=== PATIENT | male | born 1965 ===

== ENCOUNTER 2018-08-08 15:14 | Inpatient (IN) ==
[2018-08-08] MEDS ORDERED: ALBUTEROL/IPRATROPIUM 3 ML NEB RESP TX PRN (15:51)
[2018-08-08] MEDS ORDERED: GLUCAGON 1 MG VIAL IM PRN ×2 (15:51→18:06)
[2018-08-08] MEDS ORDERED: ONDANSETRON 4 MG/2 ML VIAL IV PRN (15:51)
[2018-08-08] MEDS ORDERED: DEXTROSE 50% 25 GM/50 ML VIAL IV PRN ×2 (15:51→18:06)
[2018-08-08] MEDS: PANTOPRAZOLE 40 MG TABLET PO SCH (17:00)
[2018-08-08] MEDS: PIPERACILLIN/TAZOBACTAM 3,375 MG in SODIUM CHLORIDE 0.9% 100 ML IV SCH ×2 (17:00→23:58)
[2018-08-08] MEDS: LACTATED RINGERS 1,000 ML IV SCH (17:00)
[2018-08-08 17:03] LABS: Basophils % 0.2 % (0.0-0.8); Eosinophils # 0.2 10*3/uL (0.0-0.87); Eosinophils % 1.4 % (0.00-10.9); Hematocrit 31.3 VOL% (42.0-52.0); Hemoglobin 10.2 GM/DL (14.0-18.0); Immature Granulocytes % 0.9 %; Immature Granulocytes Absolute 0.13 #; Lymphocytes # 1.1 10*3/uL (1.4-4.0); Mean Corpuscular HGB Conc 32.6 GM/DL (32-36); Mean Corpuscular Volume 94.8 FL (87-102); Mean Platelet Volume 9.5 FL (9.6-12.0); Monocytes % 8.5 % (1.7-12.7); Platelet Count 366 T/CUMM (130-400); Red Cell Distribution Width 11.9 % (9.3-17.3); White Blood Count 13.7 T/CUMM (4-12)
[2018-08-08 17:22] LABS: Calcium 8.7 MG/DL (8.5-10.1)
[2018-08-08] MEDS ORDERED: VANCOMYCIN INJ 1,000 MG in SODIUM CHLORIDE 0.9% 250 ML IV ONE (18:04)
[2018-08-08] MEDS ORDERED: NICOTINE 14 MG/24 HR PATCH TRANSDERM PRN (18:13)
[2018-08-08 20:15] LABS: Alanine Aminotransferase 30 U/L (16-61); Alkaline Phosphatase 134 U/L (45-117); Aspartate Amino Transferase 16 U/L (0-37); Bilirubin,Total < 0.39 MG/DL (0.2-1.0); Blood Urea Nitrogen 42 MG/DL (7-18); Calcium 8.2 MG/DL (8.5-10.1); Glucose 180 MG/DL (74-106); Osmolality,Calculated 296.3 MOS/KG (273-304); Thyroid Stimulating Hormone 0.774 uIU/ml (0.358-3.74); Total Protein 6.8 G/DL (6.4-8.3)
[2018-08-08] MEDS: INSULIN REGULAR 100 UNIT/ML SUBCUT SCH (21:26)
[2018-08-08 22:36] LABS: Apearance,Urine CLEAR (Clear); Bilirubin,Urine Negative (Negative); Blood, Urine Negative (Negative); Glucose,Urine (UA) >=500 mg/dL (Negative); Ketones,Urine Negative (Negative); Mucus,Urine Occasional /LPF (Occasional); Nitrite,Urine Negative (Negative); Protein,Urine >=500 MG/DL; RBC,Urine 3 /HPF (0-4); Squamous Epithelial Cell,Urine Occasional /HPF (0-10); Urine Color Yellow (Yellow); Urine Specific Gravity 1.012 (1.001-1.035); Urine Urobilinogen < 2.0 EU/DL (0.2-1.0); WBC,Urine 1 /HPF (0-6)
[2018-08-09 04:21] LABS: Risk Ratio 4.09; VLDL CHOLESTEROL 29.6 MG/DL
[2018-08-09] MEDS: INSULIN REGULAR 100 UNIT/ML SUBCUT SCH ×4 (07:56→20:48)
[2018-08-09] MEDS: MULTIVITAMIN (CENTRUM) TABLET PO SCH (08:12)
[2018-08-09] MEDS: METOPROLOL TARTRATE 50 MG TABLET PO SCH ×2 (08:12→15:00)
[2018-08-09] MEDS: PANTOPRAZOLE 40 MG TABLET PO SCH (08:12)
[2018-08-09] MEDS: SIMVASTATIN 20 MG TABLET PO SCH (08:13)
[2018-08-09] MEDS: PIPERACILLIN/TAZOBACTAM 3,375 MG in SODIUM CHLORIDE 0.9% 100 ML IV SCH ×3 (08:55→23:32)
[2018-08-09] MEDS ORDERED: LIDOCAINE 1% 20 ML VIAL ONE (09:26)
[2018-08-09] MEDS ORDERED: PROPOFOL 200 MG/20 ML VIAL IV ONE (11:19)
[2018-08-09] MEDS ORDERED: LABETALOL 20 MG/4 ML SYRINGE IV ONE (11:20)
[2018-08-09] MEDS ORDERED: fentaNYL 100 MCG/2 ML VIAL ONE (11:20)
[2018-08-09] MEDS ORDERED: MIDAZOLAM 2 MG/2 ML VIAL ONE (11:20)
[2018-08-09] MEDS: VANCOMYCIN INJ 1,500 MG in SODIUM CHLORIDE 0.9% 500 ML IV SCH (15:45)
[2018-08-09] MEDS: LACTATED RINGERS 1,000 ML IV SCH (17:06)
[2018-08-09] MEDS: hydrALAZINE 20 MG/1 ML VIAL IV PRN (18:20)
[2018-08-10 08:18] LABS: Basophils # 0.1 10*3/uL (0.0-0.2); Basophils % 0.3 % (0.0-0.8); Eosinophils # 0.4 10*3/uL (0.0-0.87); Eosinophils % 2.4 % (0.00-10.9); Hematocrit 32.6 VOL% (42.0-52.0); Hemoglobin 10.6 GM/DL (14.0-18.0); Immature Granulocytes % 1.1 %; Immature Granulocytes Absolute 0.16 #; Mean Corpuscular HGB Conc 32.5 GM/DL (32-36); Mean Corpuscular Volume 93.7 FL (87-102); Mean Platelet Volume 9.2 FL (9.6-12.0); Monocytes % 7.7 % (1.7-12.7); Neutrophils % 81.5 % (38.7-73.9); Platelet Count 353 T/CUMM (130-400); Red Blood Count 3.48 MC/CUMM (3.8-5.5); Red Cell Distribution Width 11.7 % (9.3-17.3); White Blood Count 14.4 T/CUMM (4-12)
[2018-08-10 08:40] LABS: Alanine Aminotransferase 39 U/L (16-61); Albumin 1.9 G/DL (3.4-5.0); Alkaline Phosphatase 118 U/L (45-117); Aspartate Amino Transferase 22 U/L (0-37); Bilirubin,Total < 0.39 MG/DL (0.2-1.0); Blood Urea Nitrogen 39 MG/DL (7-18); Calcium 8.6 MG/DL (8.5-10.1); Glucose 197 MG/DL (74-106); Osmolality,Calculated 296.1 MOS/KG (273-304); Total Protein 6.8 G/DL (6.4-8.3)
[2018-08-10] MEDS: PANTOPRAZOLE 40 MG TABLET PO SCH (08:42)
[2018-08-10] MEDS: MULTIVITAMIN (CENTRUM) TABLET PO SCH (08:42)
[2018-08-10] MEDS: SIMVASTATIN 20 MG TABLET PO SCH (08:42)
[2018-08-10] MEDS: METOPROLOL TARTRATE 50 MG TABLET PO SCH (08:42)
[2018-08-10] MEDS: INSULIN REGULAR 100 UNIT/ML SUBCUT SCH ×4 (08:43→21:36)
[2018-08-10] MEDS: PIPERACILLIN/TAZOBACTAM 3,375 MG in SODIUM CHLORIDE 0.9% 100 ML IV SCH ×3 (08:45→23:50)
[2018-08-10] MEDS: BISACODYL 5 MG TABLET PO PRN (10:15)
[2018-08-10] MEDS: VANCOMYCIN INJ 1,500 MG in SODIUM CHLORIDE 0.9% 500 ML IV SCH (11:09)
[2018-08-10] MEDS: MAGNESIUM HYDROXIDE SUSP 30 ML UDCUP PO PRN (15:34)
[2018-08-10] MEDS: HYDROmorphone 2 MG/1 ML VIAL IV PRN (21:31)
[2018-08-10] MEDS: INSULIN NPH/REGULAR 70/30 100 UNIT/ML SUBCUT SCH (21:38)
[2018-08-11 04:39] LABS: Basophils % 0.2 % (0.0-0.8); Eosinophils # 0.4 10*3/uL (0.0-0.87); Eosinophils % 3.2 % (0.00-10.9); Hematocrit 31.9 VOL% (42.0-52.0); Hemoglobin 10.8 GM/DL (14.0-18.0); Immature Granulocytes % 0.9 %; Immature Granulocytes Absolute 0.12 #; Lymphocytes # 0.9 10*3/uL (1.4-4.0); Lymphocytes % 7.3 % (21.2-54.2); Mean Corpuscular HGB Conc 33.9 GM/DL (32-36); Mean Corpuscular Volume 92.2 FL (87-102); Mean Platelet Volume 9.5 FL (9.6-12.0); Monocytes % 9.3 % (1.7-12.7); Neutrophils % 79.1 % (38.7-73.9); Platelet Count 356 T/CUMM (130-400); Red Blood Count 3.46 MC/CUMM (3.8-5.5); Red Cell Distribution Width 11.7 % (9.3-17.3); White Blood Count 12.7 T/CUMM (4-12)
[2018-08-11] MEDS: LACTATED RINGERS 1,000 ML IV SCH ×2 (04:43→04:44)
[2018-08-11] MEDS: VANCOMYCIN INJ 1,500 MG in SODIUM CHLORIDE 0.9% 500 ML IV SCH (04:54)
[2018-08-11 05:06] LABS: Albumin 1.9 G/DL (3.4-5.0); Bilirubin,Total 0.5 MG/DL (0.2-1.0); Calcium 8.4 MG/DL (8.5-10.1); Osmolality,Calculated 293.1 MOS/KG (273-304); Total Protein 6.7 G/DL (6.4-8.3)
[2018-08-11] MEDS: MULTIVITAMIN (CENTRUM) TABLET PO SCH (09:13)
[2018-08-11] MEDS: ASPIRIN CHEW 81 MG TABLET PO SCH (09:13)
[2018-08-11] MEDS: METOPROLOL TARTRATE 50 MG TABLET PO SCH (09:13)
[2018-08-11] MEDS: SIMVASTATIN 20 MG TABLET PO SCH (09:13)
[2018-08-11] MEDS: PANTOPRAZOLE 40 MG TABLET PO SCH (09:13)
[2018-08-11] MEDS: INSULIN REGULAR 100 UNIT/ML SUBCUT SCH ×4 (09:15→20:51)
[2018-08-11] MEDS: INSULIN NPH/REGULAR 70/30 100 UNIT/ML SUBCUT SCH ×2 (09:17→20:51)
[2018-08-11] MEDS: PIPERACILLIN/TAZOBACTAM 3,375 MG in SODIUM CHLORIDE 0.9% 100 ML IV SCH ×2 (09:18→17:20)
[2018-08-11] MEDS: MAGNESIUM HYDROXIDE SUSP 30 ML UDCUP PO PRN (09:22)
[2018-08-11] MEDS: BISACODYL 5 MG TABLET PO PRN (09:22)
[2018-08-11] MEDS: SODIUM HYPOCHLORITE 0.25% IRRIG 473 ML BOTTLE TOP SCH (10:38)
[2018-08-11] MEDS: CHLORHEXIDINE 4% SOLN 118 ML BOTTLE TOP SCH (10:39)
[2018-08-11] MEDS: TAMSULOSIN 0.4 MG CAPSULE PO SCH (20:50)
[2018-08-12] MEDS: PIPERACILLIN/TAZOBACTAM 3,375 MG in SODIUM CHLORIDE 0.9% 100 ML IV SCH ×3 (00:20→16:38)
[2018-08-12] MEDS: HYDROmorphone 2 MG/1 ML VIAL IV PRN ×2 (01:27→05:58)
[2018-08-12] MEDS: VANCOMYCIN INJ 1,500 MG in SODIUM CHLORIDE 0.9% 500 ML IV SCH (06:01)
[2018-08-12] MEDS ORDERED: LIDOCAINE 1% 20 ML VIAL ONE ×2 (07:27)
[2018-08-12] MEDS ORDERED: PROPOFOL 200 MG/20 ML VIAL IV ONE (08:17)
[2018-08-12] MEDS ORDERED: fentaNYL 100 MCG/2 ML VIAL ONE (08:18)
[2018-08-12] MEDS ORDERED: MIDAZOLAM 2 MG/2 ML VIAL ONE (08:18)
[2018-08-12 08:46] LABS: Basophils % 0.2 % (0.0-0.8); Eosinophils # 0.5 10*3/uL (0.0-0.87); Eosinophils % 4.4 % (0.00-10.9); Hematocrit 27.8 VOL% (42.0-52.0); Hemoglobin 9.2 GM/DL (14.0-18.0); Immature Granulocytes % 1.2 %; Immature Granulocytes Absolute 0.13 #; Lymphocytes # 1.1 10*3/uL (1.4-4.0); Lymphocytes % 10.2 % (21.2-54.2); Mean Corpuscular HGB Conc 33.1 GM/DL (32-36); Mean Platelet Volume 9.2 FL (9.6-12.0); Monocytes % 7.5 % (1.7-12.7); Neutrophils % 76.5 % (38.7-73.9); Platelet Count 329 T/CUMM (130-400); Red Blood Count 2.99 MC/CUMM (3.8-5.5); Red Cell Distribution Width 11.7 % (9.3-17.3); White Blood Count 10.8 T/CUMM (4-12)
[2018-08-12] MEDS ORDERED: GLUCAGON 1 MG VIAL IM PRN (09:10)
[2018-08-12] MEDS ORDERED: DEXTROSE 50% 25 GM/50 ML VIAL IV PRN (09:10)
[2018-08-12] MEDS: INSULIN REGULAR 100 UNIT/ML SUBCUT SCH ×4 (09:19→21:59)
[2018-08-12] MEDS: MULTIVITAMIN (CENTRUM) TABLET PO SCH (09:21)
[2018-08-12] MEDS: ASPIRIN CHEW 81 MG TABLET PO SCH (09:21)
[2018-08-12] MEDS: PANTOPRAZOLE 40 MG TABLET PO SCH (09:21)
[2018-08-12] MEDS: TAMSULOSIN 0.4 MG CAPSULE PO SCH (09:22)
[2018-08-12] MEDS: BISACODYL 5 MG TABLET PO PRN (09:22)
[2018-08-12] MEDS: METOPROLOL TARTRATE 50 MG TABLET PO SCH (09:22)
[2018-08-12] MEDS: SIMVASTATIN 20 MG TABLET PO SCH (09:22)
[2018-08-12 09:26] LABS: Alanine Aminotransferase 27 U/L (16-61); Albumin 1.7 G/DL (3.4-5.0); Alkaline Phosphatase 94 U/L (45-117); Aspartate Amino Transferase 22 U/L (0-37); Bilirubin,Total < 0.39 MG/DL (0.2-1.0); Blood Urea Nitrogen 26 MG/DL (7-18); Calcium 8.2 MG/DL (8.5-10.1); Glucose 139 MG/DL (74-106); Osmolality,Calculated 292.8 MOS/KG (273-304)
[2018-08-12] MEDS: INSULIN NPH/REGULAR 70/30 100 UNIT/ML SUBCUT SCH ×2 (09:29→20:50)
[2018-08-12] MEDS: SODIUM HYPOCHLORITE 0.25% IRRIG 473 ML BOTTLE TOP SCH (09:32)
[2018-08-12] MEDS: CHLORHEXIDINE 4% SOLN 118 ML BOTTLE TOP SCH (10:41)
[2018-08-12] MEDS: POTASSIUM CHLORIDE 20 MEQ TABLET PO SCH (12:20)
[2018-08-12] MEDS: LACTULOSE 20 GM/30 ML UDCUP PO PRN ×3 (12:20→20:50)
[2018-08-12] MEDS: hydrALAZINE 20 MG/1 ML VIAL IV PRN (20:51)
[2018-08-12] MEDS: LACTATED RINGERS 1,000 ML IV SCH (21:59)
[2018-08-13] MEDS: LACTATED RINGERS 1,000 ML IV SCH ×2 (00:17→17:38)
[2018-08-13] MEDS: PIPERACILLIN/TAZOBACTAM 3,375 MG in SODIUM CHLORIDE 0.9% 100 ML IV SCH ×2 (00:27→10:15)
[2018-08-13 04:47] LABS: Basophils % 0.2 % (0.0-0.8); Eosinophils # 0.6 10*3/uL (0.0-0.87); Eosinophils % 4.5 % (0.00-10.9); Hematocrit 31.4 VOL% (42.0-52.0); Hemoglobin 10.3 GM/DL (14.0-18.0); Immature Granulocytes % 1.3 %; Immature Granulocytes Absolute 0.16 #; Lymphocytes # 1.1 10*3/uL (1.4-4.0); Lymphocytes % 9.3 % (21.2-54.2); Mean Corpuscular HGB Conc 32.8 GM/DL (32-36); Mean Corpuscular Volume 93.2 FL (87-102); Mean Platelet Volume 9.3 FL (9.6-12.0); Monocytes % 8.5 % (1.7-12.7); Neutrophils % 76.2 % (38.7-73.9); Platelet Count 344 T/CUMM (130-400); Red Blood Count 3.37 MC/CUMM (3.8-5.5); Red Cell Distribution Width 11.7 % (9.3-17.3); White Blood Count 12.3 T/CUMM (4-12)
[2018-08-13 05:09] LABS: Alanine Aminotransferase 33 U/L (16-61); Albumin 1.9 G/DL (3.4-5.0); Alkaline Phosphatase 115 U/L (45-117); Aspartate Amino Transferase 31 U/L (0-37); Bilirubin,Total < 0.39 MG/DL (0.2-1.0); Blood Urea Nitrogen 24 MG/DL (7-18); Calcium 7.6 MG/DL (8.5-10.1); Glucose 61 MG/DL (74-106); Osmolality,Calculated 291.6 MOS/KG (273-304); Total Protein 6.4 G/DL (6.4-8.3)
[2018-08-13] MEDS: VANCOMYCIN INJ 1,500 MG in SODIUM CHLORIDE 0.9% 500 ML IV SCH (06:12)
[2018-08-13] MEDS: INSULIN REGULAR 100 UNIT/ML SUBCUT SCH ×4 (09:29→20:36)
[2018-08-13] MEDS: INSULIN NPH/REGULAR 70/30 100 UNIT/ML SUBCUT SCH ×2 (10:10→20:37)
[2018-08-13] MEDS: TAMSULOSIN 0.4 MG CAPSULE PO SCH (10:11)
[2018-08-13] MEDS: PANTOPRAZOLE 40 MG TABLET PO SCH (10:11)
[2018-08-13] MEDS: MULTIVITAMIN (CENTRUM) TABLET PO SCH (10:11)
[2018-08-13] MEDS: POTASSIUM CHLORIDE 20 MEQ TABLET PO SCH (10:11)
[2018-08-13] MEDS: ERGOCALCIFEROL 50,000 UNIT CAPSULE PO SCH (10:11)
[2018-08-13] MEDS: SIMVASTATIN 20 MG TABLET PO SCH (10:11)
[2018-08-13] MEDS: METOPROLOL TARTRATE 50 MG TABLET PO SCH (10:11)
[2018-08-13] MEDS: ASPIRIN CHEW 81 MG TABLET PO SCH (10:11)
[2018-08-13] MEDS: CHLORHEXIDINE 4% SOLN 118 ML BOTTLE TOP SCH (10:15)
[2018-08-13] MEDS: SODIUM HYPOCHLORITE 0.25% IRRIG 473 ML BOTTLE TOP SCH (10:15)
[2018-08-13] MEDS: MAGNESIUM HYDROXIDE SUSP 30 ML UDCUP PO PRN (13:14)
[2018-08-13] MEDS: LEVOFLOXACIN 500 MG TABLET PO SCH (15:47)
[2018-08-13] MEDS: SODIUM CHLORIDE 0.45% 1,000 ML IV SCH (15:48)
[2018-08-13] MEDS ORDERED: BISACODYL 10 MG SUPP RECTAL ONE (15:50)
[2018-08-14] MEDS: HYDROmorphone 2 MG/1 ML VIAL IV PRN (02:04)
[2018-08-14] MEDS: SODIUM CHLORIDE 0.45% 1,000 ML IV SCH ×2 (05:45→16:17)
[2018-08-14] MEDS ORDERED: ceFAZolin 1,000 MG in SYRINGE 1 EACH IV ONE (07:00)
[2018-08-14] MEDS: INSULIN REGULAR 100 UNIT/ML SUBCUT SCH ×4 (07:26→21:50)
[2018-08-14] MEDS ORDERED: HEPARIN/NACL 0.9% 2 UNITS/ML 2,000 ML IV ONE (07:50)
[2018-08-14] MEDS ORDERED: fentaNYL 100 MCG/2 ML VIAL IV ONE (08:00)
[2018-08-14] MEDS ORDERED: MIDAZOLAM 2 MG/2 ML VIAL IV ONE (08:00)
[2018-08-14] MEDS ORDERED: MIDAZOLAM 2 MG/2 ML VIAL ONE (09:15)
[2018-08-14] MEDS ORDERED: fentaNYL 100 MCG/2 ML VIAL ONE (09:15)
[2018-08-14] MEDS: SODIUM HYPOCHLORITE 0.25% IRRIG 473 ML BOTTLE TOP SCH (10:42)
[2018-08-14] MEDS: ASPIRIN CHEW 81 MG TABLET PO SCH (10:42)
[2018-08-14] MEDS: MULTIVITAMIN (CENTRUM) TABLET PO SCH (10:42)
[2018-08-14] MEDS: POTASSIUM CHLORIDE 20 MEQ TABLET PO SCH (10:43)
[2018-08-14] MEDS: CHLORHEXIDINE 4% SOLN 118 ML BOTTLE TOP SCH (10:43)
[2018-08-14] MEDS: SIMVASTATIN 20 MG TABLET PO SCH (10:43)
[2018-08-14] MEDS: TAMSULOSIN 0.4 MG CAPSULE PO SCH (10:43)
[2018-08-14] MEDS: PANTOPRAZOLE 40 MG TABLET PO SCH (10:43)
[2018-08-14] MEDS: METOPROLOL TARTRATE 50 MG TABLET PO SCH (10:43)
[2018-08-14] MEDS: INSULIN NPH/REGULAR 70/30 100 UNIT/ML SUBCUT SCH ×2 (10:43→21:52)
[2018-08-14] MEDS: LEVOFLOXACIN 500 MG TABLET PO SCH (16:14)
[2018-08-15 04:48] LABS: Osmolality,Calculated 287.7 MOS/KG (273-304)
[2018-08-15 04:58] LABS: Basophils # 0.1 10*3/uL (0.0-0.2); Basophils % 0.4 % (0.0-0.8); Eosinophils # 0.5 10*3/uL (0.0-0.87); Hematocrit 30.5 VOL% (42.0-52.0); Hemoglobin 10.2 GM/DL (14.0-18.0); Immature Granulocytes % 1.5 %; Immature Granulocytes Absolute 0.18 #; Lymphocytes # 1.2 10*3/uL (1.4-4.0); Lymphocytes % 10.4 % (21.2-54.2); Mean Corpuscular HGB Conc 33.4 GM/DL (32-36); Mean Corpuscular Volume 91.9 FL (87-102); Mean Platelet Volume 9.7 FL (9.6-12.0); Neutrophils % 75.7 % (38.7-73.9); Platelet Count 329 T/CUMM (130-400); Red Blood Count 3.32 MC/CUMM (3.8-5.5); Red Cell Distribution Width 11.9 % (9.3-17.3); White Blood Count 11.8 T/CUMM (4-12)
[2018-08-15] MEDS: SODIUM CHLORIDE 0.45% 1,000 ML IV SCH (05:54)
[2018-08-15] MEDS: INSULIN REGULAR 100 UNIT/ML SUBCUT SCH ×4 (07:30→21:47)
[2018-08-15] MEDS: CHLORHEXIDINE 4% SOLN 118 ML BOTTLE TOP SCH (09:30)
[2018-08-15] MEDS: SODIUM HYPOCHLORITE 0.25% IRRIG 473 ML BOTTLE TOP SCH (09:30)
[2018-08-15] MEDS: MULTIVITAMIN (CENTRUM) TABLET PO SCH (09:39)
[2018-08-15] MEDS: PANTOPRAZOLE 40 MG TABLET PO SCH (09:39)
[2018-08-15] MEDS: POTASSIUM CHLORIDE 20 MEQ TABLET PO SCH (09:39)
[2018-08-15] MEDS: SIMVASTATIN 20 MG TABLET PO SCH (09:39)
[2018-08-15] MEDS: TAMSULOSIN 0.4 MG CAPSULE PO SCH (09:39)
[2018-08-15] MEDS: METOPROLOL TARTRATE 50 MG TABLET PO SCH (09:39)
[2018-08-15] MEDS: ASPIRIN CHEW 81 MG TABLET PO SCH (09:39)
[2018-08-15] MEDS: INSULIN NPH/REGULAR 70/30 100 UNIT/ML SUBCUT SCH ×2 (09:41→21:47)
[2018-08-15] MEDS: HYDROmorphone 2 MG/1 ML VIAL IV PRN (09:50)
[2018-08-15] MEDS: LEVOFLOXACIN 500 MG TABLET PO SCH (15:24)
[2018-08-16] MEDS: INSULIN REGULAR 100 UNIT/ML SUBCUT SCH ×4 (09:47→20:27)
[2018-08-16] MEDS: INSULIN NPH/REGULAR 70/30 100 UNIT/ML SUBCUT SCH ×2 (09:47→20:25)
[2018-08-16] MEDS: PANTOPRAZOLE 40 MG TABLET PO SCH (11:10)
[2018-08-16] MEDS: METOPROLOL TARTRATE 50 MG TABLET PO SCH (11:11)
[2018-08-16] MEDS: MULTIVITAMIN (CENTRUM) TABLET PO SCH (11:11)
[2018-08-16] MEDS: TAMSULOSIN 0.4 MG CAPSULE PO SCH (11:11)
[2018-08-16] MEDS: SIMVASTATIN 20 MG TABLET PO SCH (11:11)
[2018-08-16] MEDS: ASPIRIN CHEW 81 MG TABLET PO SCH (11:12)
[2018-08-16] MEDS: POTASSIUM CHLORIDE 20 MEQ TABLET PO SCH (11:12)
[2018-08-16] MEDS: SODIUM HYPOCHLORITE 0.25% IRRIG 473 ML BOTTLE TOP SCH (16:38)
[2018-08-16] MEDS: CHLORHEXIDINE 4% SOLN 118 ML BOTTLE TOP SCH (16:38)
[2018-08-16] MEDS: LEVOFLOXACIN 500 MG TABLET PO SCH (16:42)
[2018-08-16] MEDS: LACTULOSE 20 GM/30 ML UDCUP PO PRN (16:43)
[2018-08-16] MEDS: GLYCERIN ADULT SUPP RECTAL PRN (18:30)
[2018-08-17] MEDS: INSULIN REGULAR 100 UNIT/ML SUBCUT SCH ×4 (07:48→22:27)
[2018-08-17] MEDS: INSULIN NPH/REGULAR 70/30 100 UNIT/ML SUBCUT SCH ×2 (08:58→22:22)
[2018-08-17] MEDS: diphenhydrAMINE CAP 25 MG CAPSULE PO PRN ×3 (08:59→22:59)
[2018-08-17] MEDS: PANTOPRAZOLE 40 MG TABLET PO SCH (08:59)
[2018-08-17] MEDS: POTASSIUM CHLORIDE 20 MEQ TABLET PO SCH (08:59)
[2018-08-17] MEDS: MULTIVITAMIN (CENTRUM) TABLET PO SCH (08:59)
[2018-08-17] MEDS: ASPIRIN CHEW 81 MG TABLET PO SCH (08:59)
[2018-08-17] MEDS: METOPROLOL TARTRATE 50 MG TABLET PO SCH (08:59)
[2018-08-17] MEDS: TAMSULOSIN 0.4 MG CAPSULE PO SCH (08:59)
[2018-08-17] MEDS: SIMVASTATIN 20 MG TABLET PO SCH (08:59)
[2018-08-17] MEDS: CHLORHEXIDINE 4% SOLN 118 ML BOTTLE TOP SCH (09:01)
[2018-08-17] MEDS: SODIUM HYPOCHLORITE 0.25% IRRIG 473 ML BOTTLE TOP SCH (09:01)
[2018-08-17] MEDS: HYDROmorphone 2 MG/1 ML VIAL IV PRN (10:37)
[2018-08-17] MEDS: LEVOFLOXACIN 500 MG TABLET PO SCH (13:29)
[2018-08-18] MEDS: INSULIN REGULAR 100 UNIT/ML SUBCUT SCH ×4 (08:39→21:23)
[2018-08-18] MEDS: SIMVASTATIN 20 MG TABLET PO SCH (09:50)
[2018-08-18] MEDS: PANTOPRAZOLE 40 MG TABLET PO SCH (09:50)
[2018-08-18] MEDS: POTASSIUM CHLORIDE 20 MEQ TABLET PO SCH (09:50)
[2018-08-18] MEDS: MULTIVITAMIN (CENTRUM) TABLET PO SCH (09:50)
[2018-08-18] MEDS: TAMSULOSIN 0.4 MG CAPSULE PO SCH (09:50)
[2018-08-18] MEDS: ASPIRIN CHEW 81 MG TABLET PO SCH (09:50)
[2018-08-18] MEDS: METOPROLOL TARTRATE 50 MG TABLET PO SCH (09:50)
[2018-08-18] MEDS: GLYCERIN ADULT SUPP RECTAL PRN (09:50)
[2018-08-18] MEDS: INSULIN NPH/REGULAR 70/30 100 UNIT/ML SUBCUT SCH ×2 (09:51→21:23)
[2018-08-18] MEDS: SODIUM HYPOCHLORITE 0.25% IRRIG 473 ML BOTTLE TOP SCH (09:51)
[2018-08-18] MEDS: CHLORHEXIDINE 4% SOLN 118 ML BOTTLE TOP SCH (09:51)
[2018-08-18] MEDS: LACTULOSE 20 GM/30 ML UDCUP PO PRN (11:53)
[2018-08-18] MEDS: LEVOFLOXACIN 500 MG TABLET PO SCH (13:40)
[2018-08-18] MEDS: MELATONIN 3 MG TABLET PO SCH (21:23)
[2018-08-18] MEDS: diphenhydrAMINE CAP 25 MG CAPSULE PO PRN (21:34)
[2018-08-19 05:41] LABS: Basophils % 0.3 % (0.0-0.8); Eosinophils # 0.6 10*3/uL (0.0-0.87); Eosinophils % 5.8 % (0.00-10.9); Hematocrit 29.7 VOL% (42.0-52.0); Hemoglobin 9.7 GM/DL (14.0-18.0); Immature Granulocytes % 1.3 %; Immature Granulocytes Absolute 0.14 #; Lymphocytes # 1.2 10*3/uL (1.4-4.0); Lymphocytes % 11.8 % (21.2-54.2); Mean Corpuscular HGB Conc 32.7 GM/DL (32-36); Mean Platelet Volume 9.7 FL (9.6-12.0); Monocytes % 8.9 % (1.7-12.7); Neutrophils % 71.9 % (38.7-73.9); Platelet Count 315 T/CUMM (130-400); Red Blood Count 3.16 MC/CUMM (3.8-5.5); Red Cell Distribution Width 12.3 % (9.3-17.3); White Blood Count 10.4 T/CUMM (4-12)
[2018-08-19 06:04] LABS: Osmolality,Calculated 291.8 MOS/KG (273-304)
[2018-08-19] MEDS: diphenhydrAMINE CAP 25 MG CAPSULE PO PRN ×2 (07:37→22:01)
[2018-08-19] MEDS: INSULIN REGULAR 100 UNIT/ML SUBCUT SCH ×4 (08:24→22:02)
[2018-08-19] MEDS: METOPROLOL SUCCINATE XL 100 MG TABLET PO SCH (09:02)
[2018-08-19] MEDS: INSULIN NPH/REGULAR 70/30 100 UNIT/ML SUBCUT SCH ×2 (09:03→22:02)
[2018-08-19] MEDS: PANTOPRAZOLE 40 MG TABLET PO SCH (09:03)
[2018-08-19] MEDS: ASPIRIN CHEW 81 MG TABLET PO SCH (09:03)
[2018-08-19] MEDS: POTASSIUM CHLORIDE 20 MEQ TABLET PO SCH (09:03)
[2018-08-19] MEDS: SIMVASTATIN 20 MG TABLET PO SCH (09:03)
[2018-08-19] MEDS: TAMSULOSIN 0.4 MG CAPSULE PO SCH (09:03)
[2018-08-19] MEDS: MULTIVITAMIN (CENTRUM) TABLET PO SCH (09:03)
[2018-08-19] MEDS: SODIUM HYPOCHLORITE 0.25% IRRIG 473 ML BOTTLE TOP SCH (09:03)
[2018-08-19] MEDS: CHLORHEXIDINE 4% SOLN 118 ML BOTTLE TOP SCH (09:04)
[2018-08-19] MEDS: LEVOFLOXACIN 500 MG TABLET PO SCH (13:17)
[2018-08-19] MEDS: MELATONIN 3 MG TABLET PO SCH (22:01)
[2018-08-20] MEDS ORDERED: DEXTROSE 10% 250 ML IV ONE ×2 (04:50→06:52)
[2018-08-20] MEDS: DEXTROSE 10% 25 GM/250 ML BAG IV PRN ×2 (04:56→06:54)
[2018-08-20] MEDS ORDERED: DEXTROSE 10% 250 ML BAG IV PRN (05:08)
[2018-08-20 07:33] LABS: Basophils % 0.3 % (0.0-0.8); Eosinophils # 0.6 10*3/uL (0.0-0.87); Eosinophils % 5.6 % (0.00-10.9); Hematocrit 28.3 VOL% (42.0-52.0); Hemoglobin 9.4 GM/DL (14.0-18.0); Lymphocytes # 1.2 10*3/uL (1.4-4.0); Lymphocytes % 11.6 % (21.2-54.2); Mean Corpuscular HGB Conc 33.2 GM/DL (32-36); Mean Corpuscular Volume 93.1 FL (87-102); Mean Platelet Volume 9.7 FL (9.6-12.0); Monocytes % 8.1 % (1.7-12.7); Neutrophils % 73.4 % (38.7-73.9); Platelet Count 288 T/CUMM (130-400); Red Blood Count 3.04 MC/CUMM (3.8-5.5); Red Cell Distribution Width 12.3 % (9.3-17.3); White Blood Count 10.4 T/CUMM (4-12)
[2018-08-20 08:10] LABS: Albumin 1.8 G/DL (3.4-5.0); Bilirubin,Total 0.5 MG/DL (0.2-1.0); Calcium 7.7 MG/DL (8.5-10.1); Osmolality,Calculated 301.8 MOS/KG (273-304); Total Protein 5.7 G/DL (6.4-8.3)
[2018-08-20] MEDS: INSULIN REGULAR 100 UNIT/ML SUBCUT SCH ×4 (08:18→21:03)
[2018-08-20] MEDS: MULTIVITAMIN (CENTRUM) TABLET PO SCH (10:55)
[2018-08-20] MEDS: ASPIRIN CHEW 81 MG TABLET PO SCH (10:55)
[2018-08-20] MEDS: POTASSIUM CHLORIDE 20 MEQ TABLET PO SCH (10:56)
[2018-08-20] MEDS: SIMVASTATIN 20 MG TABLET PO SCH (10:56)
[2018-08-20] MEDS: INSULIN NPH/REGULAR 70/30 100 UNIT/ML SUBCUT SCH ×2 (10:56→21:36)
[2018-08-20] MEDS: TAMSULOSIN 0.4 MG CAPSULE PO SCH (10:56)
[2018-08-20] MEDS: PANTOPRAZOLE 40 MG TABLET PO SCH (12:12)
[2018-08-20] MEDS: METOPROLOL SUCCINATE XL 100 MG TABLET PO SCH (12:12)
[2018-08-20] MEDS: HYDROmorphone 2 MG/1 ML VIAL IV PRN (12:14)
[2018-08-20] MEDS: SODIUM HYPOCHLORITE 0.25% IRRIG 473 ML BOTTLE TOP SCH (12:33)
[2018-08-20] MEDS: CHLORHEXIDINE 4% SOLN 118 ML BOTTLE TOP SCH (12:33)
[2018-08-20] MEDS ORDERED: SODIUM CHLORIDE 0.9% 250 ML IV SCH (13:30)
[2018-08-20] MEDS ORDERED: MIDAZOLAM 2 MG/2 ML VIAL ONE (14:55)
[2018-08-20] MEDS ORDERED: PROPOFOL 200 MG/20 ML VIAL IV ONE (14:55)
[2018-08-20] MEDS ORDERED: SEVOFLURANE 1 UNIT/15 MINUTE INH ONE (14:55)
[2018-08-20] MEDS ORDERED: fentaNYL 100 MCG/2 ML VIAL ONE (14:55)
[2018-08-20] MEDS ORDERED: ONDANSETRON 4 MG/2 ML VIAL ONE (14:56)
[2018-08-20] MEDS ORDERED: ePHEDrine 50 MG/ML AMP ONE (14:56)
[2018-08-20] MEDS ORDERED: SODIUM CHLORIDE 0.9% 250 ML IV ONE (14:56)
[2018-08-20] MEDS ORDERED: DEXAMETHASONE 4 MG/1 ML VIAL ONE (14:56)
[2018-08-20] MEDS: LEVOFLOXACIN 500 MG TABLET PO SCH (19:26)
[2018-08-20] MEDS: ERGOCALCIFEROL 50,000 UNIT CAPSULE PO SCH (19:26)
[2018-08-20] MEDS: hydrALAZINE 20 MG/1 ML VIAL IV PRN (19:28)
[2018-08-20] MEDS: MELATONIN 3 MG TABLET PO SCH (21:04)
[2018-08-21 08:13] LABS: Basophils % 0.2 % (0.0-0.8); Eosinophils % 0.2 % (0.00-10.9); Hematocrit 35.1 VOL% (42.0-52.0); Immature Granulocytes Absolute 0.13 #; Lymphocytes % 7.9 % (21.2-54.2); Mean Corpuscular Volume 92.6 FL (87-102); Mean Platelet Volume 10.2 FL (9.6-12.0); Monocytes % 6.9 % (1.7-12.7); Neutrophils % 83.8 % (38.7-73.9); Platelet Count 341 T/CUMM (130-400); Red Blood Count 3.79 MC/CUMM (3.8-5.5); Red Cell Distribution Width 12.3 % (9.3-17.3); White Blood Count 12.9 T/CUMM (4-12)
[2018-08-21 08:22] LABS: Hemoglobin 11.6 GM/DL (14.0-18.0)
[2018-08-21 08:33] LABS: Alanine Aminotransferase 22 U/L (16-61); Albumin 2.2 G/DL (3.4-5.0); Alkaline Phosphatase 102 U/L (45-117); Aspartate Amino Transferase 18 U/L (0-37); Bilirubin,Total < 0.39 MG/DL (0.2-1.0); Blood Urea Nitrogen 31 MG/DL (7-18); Calcium 8.2 MG/DL (8.5-10.1); Glucose 233 MG/DL (74-106); Osmolality,Calculated 290.5 MOS/KG (273-304); Total Protein 6.8 G/DL (6.4-8.3)
[2018-08-21] MEDS: POTASSIUM CHLORIDE 20 MEQ TABLET PO SCH (09:00)
[2018-08-21] MEDS: SIMVASTATIN 20 MG TABLET PO SCH (09:00)
[2018-08-21] MEDS: PANTOPRAZOLE 40 MG TABLET PO SCH (09:00)
[2018-08-21] MEDS: METOPROLOL SUCCINATE XL 100 MG TABLET PO SCH (09:00)
[2018-08-21] MEDS: ASPIRIN CHEW 81 MG TABLET PO SCH (09:00)
[2018-08-21] MEDS: MULTIVITAMIN (CENTRUM) TABLET PO SCH (09:00)
[2018-08-21] MEDS: INSULIN REGULAR 100 UNIT/ML SUBCUT SCH ×4 (09:01→21:34)
[2018-08-21] MEDS: INSULIN NPH/REGULAR 70/30 100 UNIT/ML SUBCUT SCH ×2 (09:01→21:34)
[2018-08-21] MEDS: SODIUM HYPOCHLORITE 0.25% IRRIG 473 ML BOTTLE TOP SCH (09:02)
[2018-08-21] MEDS: CHLORHEXIDINE 4% SOLN 118 ML BOTTLE TOP SCH (09:02)
[2018-08-21] MEDS: TAMSULOSIN 0.4 MG CAPSULE PO SCH (09:02)
[2018-08-21] MEDS: diphenhydrAMINE CAP 25 MG CAPSULE PO PRN ×2 (09:10→15:47)
[2018-08-21] MEDS: LEVOFLOXACIN 500 MG TABLET PO SCH (13:55)
[2018-08-22] MEDS: diphenhydrAMINE CAP 25 MG CAPSULE PO PRN ×2 (01:50→20:42)
[2018-08-22] MEDS: INSULIN NPH/REGULAR 70/30 100 UNIT/ML SUBCUT SCH ×2 (08:30→20:39)
[2018-08-22] MEDS: INSULIN REGULAR 100 UNIT/ML SUBCUT SCH ×4 (08:30→20:38)
[2018-08-22 08:31] LABS: Basophils % 0.3 % (0.0-0.8); Eosinophils # 0.6 10*3/uL (0.0-0.87); Eosinophils % 5.6 % (0.00-10.9); Hematocrit 32.2 VOL% (42.0-52.0); Hemoglobin 10.9 GM/DL (14.0-18.0); Immature Granulocytes Absolute 0.11 #; Lymphocytes # 1.8 10*3/uL (1.4-4.0); Lymphocytes % 15.7 % (21.2-54.2); Mean Corpuscular HGB Conc 33.9 GM/DL (32-36); Mean Corpuscular Volume 92.5 FL (87-102); Mean Platelet Volume 9.7 FL (9.6-12.0); Monocytes % 7.7 % (1.7-12.7); Neutrophils % 69.7 % (38.7-73.9); Platelet Count 324 T/CUMM (130-400); Red Blood Count 3.48 MC/CUMM (3.8-5.5); Red Cell Distribution Width 12.6 % (9.3-17.3); White Blood Count 11.5 T/CUMM (4-12)
[2018-08-22] MEDS: POTASSIUM CHLORIDE 20 MEQ TABLET PO SCH (08:31)
[2018-08-22] MEDS: METOPROLOL SUCCINATE XL 100 MG TABLET PO SCH (08:31)
[2018-08-22] MEDS: SODIUM HYPOCHLORITE 0.25% IRRIG 473 ML BOTTLE TOP SCH (08:31)
[2018-08-22] MEDS: TAMSULOSIN 0.4 MG CAPSULE PO SCH (08:31)
[2018-08-22] MEDS: SIMVASTATIN 20 MG TABLET PO SCH (08:31)
[2018-08-22] MEDS: MULTIVITAMIN (CENTRUM) TABLET PO SCH (08:31)
[2018-08-22] MEDS: CHLORHEXIDINE 4% SOLN 118 ML BOTTLE TOP SCH (08:31)
[2018-08-22] MEDS: PANTOPRAZOLE 40 MG TABLET PO SCH (08:31)
[2018-08-22] MEDS: ASPIRIN CHEW 81 MG TABLET PO SCH (08:31)
[2018-08-22] MEDS: MAGNESIUM HYDROXIDE SUSP 30 ML UDCUP PO PRN (08:46)
[2018-08-22 08:58] LABS: Alanine Aminotransferase 19 U/L (16-61); Albumin 2.3 G/DL (3.4-5.0); Alkaline Phosphatase 92 U/L (45-117); Aspartate Amino Transferase 18 U/L (0-37); Bilirubin,Total < 0.39 MG/DL (0.2-1.0); Blood Urea Nitrogen 32 MG/DL (7-18); Calcium 8.2 MG/DL (8.5-10.1); Glucose 129 MG/DL (74-106); Osmolality,Calculated 291.1 MOS/KG (273-304); Total Protein 6.7 G/DL (6.4-8.3)
[2018-08-22] MEDS: SODIUM CHLORIDE 0.9% 1,000 ML IV SCH ×2 (12:37→20:43)
[2018-08-22] MEDS: LEVOFLOXACIN 500 MG TABLET PO SCH (13:33)
[2018-08-22] MEDS: GLYCERIN ADULT SUPP RECTAL PRN (13:51)
[2018-08-22] MEDS: TEMAZEPAM 15 MG CAPSULE PO PRN (20:42)
[2018-08-23] MEDS: INSULIN REGULAR 100 UNIT/ML SUBCUT SCH ×4 (07:34→22:46)
[2018-08-23] MEDS: TAMSULOSIN 0.4 MG CAPSULE PO SCH (08:09)
[2018-08-23] MEDS: ASPIRIN CHEW 81 MG TABLET PO SCH (08:09)
[2018-08-23] MEDS: SODIUM HYPOCHLORITE 0.25% IRRIG 473 ML BOTTLE TOP SCH (08:09)
[2018-08-23] MEDS: MULTIVITAMIN (CENTRUM) TABLET PO SCH (08:09)
[2018-08-23] MEDS: PANTOPRAZOLE 40 MG TABLET PO SCH (08:11)
[2018-08-23] MEDS: METOPROLOL SUCCINATE XL 100 MG TABLET PO SCH (08:11)
[2018-08-23] MEDS: INSULIN NPH/REGULAR 70/30 100 UNIT/ML SUBCUT SCH ×2 (08:11→22:46)
[2018-08-23] MEDS: CHLORHEXIDINE 4% SOLN 118 ML BOTTLE TOP SCH (08:11)
[2018-08-23] MEDS: POTASSIUM CHLORIDE 20 MEQ TABLET PO SCH (08:11)
[2018-08-23] MEDS: SIMVASTATIN 20 MG TABLET PO SCH (08:12)
[2018-08-23 08:36] LABS: Basophils % 0.5 % (0.0-0.8); Eosinophils # 0.6 10*3/uL (0.0-0.87); Eosinophils % 6.6 % (0.00-10.9); Hematocrit 31.7 VOL% (42.0-52.0); Hemoglobin 10.3 GM/DL (14.0-18.0); Immature Granulocytes % 0.8 %; Immature Granulocytes Absolute 0.07 #; Lymphocytes # 1.6 10*3/uL (1.4-4.0); Lymphocytes % 18.6 % (21.2-54.2); Mean Corpuscular HGB Conc 32.5 GM/DL (32-36); Mean Corpuscular Volume 94.1 FL (87-102); Mean Platelet Volume 9.6 FL (9.6-12.0); Neutrophils % 63.5 % (38.7-73.9); Platelet Count 281 T/CUMM (130-400); Red Blood Count 3.37 MC/CUMM (3.8-5.5); Red Cell Distribution Width 12.5 % (9.3-17.3); White Blood Count 8.6 T/CUMM (4-12)
[2018-08-23 08:57] LABS: Alanine Aminotransferase 20 U/L (16-61); Albumin 2.2 G/DL (3.4-5.0); Alkaline Phosphatase 93 U/L (45-117); Aspartate Amino Transferase 15 U/L (0-37); Bilirubin,Total < 0.39 MG/DL (0.2-1.0); Blood Urea Nitrogen 29 MG/DL (7-18); Calcium 8.4 MG/DL (8.5-10.1); Glucose 146 MG/DL (74-106); Total Protein 6.1 G/DL (6.4-8.3)
[2018-08-23] MEDS ORDERED: DIAZEPAM 5 MG TABLET PO ONE (09:28)
[2018-08-23] MEDS ORDERED: ceFAZolin 1,000 MG in SYRINGE 1 EACH IV ONE (10:18)
[2018-08-23] MEDS ORDERED: ceFAZolin 1,000 MG VIAL ONE (11:00)
[2018-08-23] MEDS ORDERED: ONDANSETRON 4 MG/2 ML VIAL ONE ×2 (12:14→12:53)
[2018-08-23] MEDS ORDERED: ePHEDrine 50 MG/ML AMP ONE (12:15)
[2018-08-23] MEDS ORDERED: PHENYLEPHRINE 1 MG/10 ML SYRINGE IV ONE (12:15)
[2018-08-23] MEDS ORDERED: PROPOFOL 200 MG/20 ML VIAL IV ONE (12:15)
[2018-08-23] MEDS ORDERED: MIDAZOLAM 2 MG/2 ML VIAL ONE (12:44)
[2018-08-23] MEDS ORDERED: fentaNYL 100 MCG/2 ML VIAL ONE (12:45)
[2018-08-23] MEDS ORDERED: ONDANSETRON 4 MG/2 ML VIAL IV PRN (12:50)
[2018-08-23] MEDS ORDERED: HYDROmorphone 2 MG/1 ML VIAL ONE (12:53)
[2018-08-23] MEDS: HYDROmorphone 2 MG/1 ML VIAL IV PRN ×7 (12:58→21:35)
[2018-08-23] MEDS: LEVOFLOXACIN 500 MG TABLET PO SCH (13:26)
[2018-08-23] MEDS: diphenhydrAMINE CAP 25 MG CAPSULE PO PRN ×2 (14:44→21:37)
[2018-08-23] MEDS: TEMAZEPAM 15 MG CAPSULE PO PRN (21:45)
[2018-08-24] MEDS: HYDROmorphone 2 MG/1 ML VIAL IV PRN ×3 (02:25→20:17)
[2018-08-24 06:01] LABS: Basophils % 0.2 % (0.0-0.8); Eosinophils # 0.4 10*3/uL (0.0-0.87); Hematocrit 29.1 VOL% (42.0-52.0); Hemoglobin 9.7 GM/DL (14.0-18.0); Immature Granulocytes % 0.9 %; Immature Granulocytes Absolute 0.11 #; Lymphocytes # 1.2 10*3/uL (1.4-4.0); Lymphocytes % 9.6 % (21.2-54.2); Mean Corpuscular HGB Conc 33.3 GM/DL (32-36); Mean Corpuscular Volume 93.6 FL (87-102); Mean Platelet Volume 10.1 FL (9.6-12.0); Monocytes % 9.7 % (1.7-12.7); Neutrophils % 76.6 % (38.7-73.9); Platelet Count 269 T/CUMM (130-400); Red Blood Count 3.11 MC/CUMM (3.8-5.5); Red Cell Distribution Width 12.6 % (9.3-17.3); White Blood Count 12.5 T/CUMM (4-12)
[2018-08-24 08:00] LABS: Alanine Aminotransferase 17 U/L (16-61); Albumin 2.3 G/DL (3.4-5.0); Alkaline Phosphatase 91 U/L (45-117); Aspartate Amino Transferase 16 U/L (0-37); Bilirubin,Total < 0.39 MG/DL (0.2-1.0); Blood Urea Nitrogen 34 MG/DL (7-18); Calcium 7.8 MG/DL (8.5-10.1); Glucose 184 MG/DL (74-106); Osmolality,Calculated 289.5 MOS/KG (273-304); Total Protein 6.1 G/DL (6.4-8.3)
[2018-08-24] MEDS: PANTOPRAZOLE 40 MG TABLET PO SCH (08:51)
[2018-08-24] MEDS: diphenhydrAMINE CAP 25 MG CAPSULE PO PRN (08:51)
[2018-08-24] MEDS: POTASSIUM CHLORIDE 20 MEQ TABLET PO SCH (08:51)
[2018-08-24] MEDS: METOPROLOL SUCCINATE XL 100 MG TABLET PO SCH (08:52)
[2018-08-24] MEDS: TAMSULOSIN 0.4 MG CAPSULE PO SCH (08:52)
[2018-08-24] MEDS: ASPIRIN CHEW 81 MG TABLET PO SCH (08:52)
[2018-08-24] MEDS: SIMVASTATIN 20 MG TABLET PO SCH (08:52)
[2018-08-24] MEDS: MULTIVITAMIN (CENTRUM) TABLET PO SCH (08:52)
[2018-08-24] MEDS: INSULIN NPH/REGULAR 70/30 100 UNIT/ML SUBCUT SCH ×2 (08:53→20:18)
[2018-08-24] MEDS: INSULIN REGULAR 100 UNIT/ML SUBCUT SCH ×4 (08:53→20:18)
[2018-08-24] MEDS: SODIUM HYPOCHLORITE 0.25% IRRIG 473 ML BOTTLE TOP SCH (10:04)
[2018-08-24] MEDS: GABAPENTIN 100 MG CAPSULE PO SCH ×2 (10:05→20:18)
[2018-08-24] MEDS: CHLORHEXIDINE 4% SOLN 118 ML BOTTLE TOP SCH (10:05)
[2018-08-24] MEDS: HYDROmorphone 2 MG/1 ML VIAL IM PRN ×2 (12:48→16:55)
[2018-08-24] MEDS: SODIUM CHLORIDE 0.9% 1,000 ML IV SCH (13:08)
[2018-08-24] MEDS: LEVOFLOXACIN 500 MG TABLET PO SCH (13:51)
[2018-08-24] MEDS: TEMAZEPAM 15 MG CAPSULE PO PRN (23:51)
[2018-08-25] MEDS: SODIUM CHLORIDE 0.9% 1,000 ML IV SCH
[2018-08-25] MEDS: INSULIN REGULAR 100 UNIT/ML SUBCUT SCH ×4 (08:14→20:27)
[2018-08-25 08:26] LABS: Basophils % 0.2 % (0.0-0.8); Eosinophils # 0.3 10*3/uL (0.0-0.87); Eosinophils % 2.7 % (0.00-10.9); Hemoglobin 9.6 GM/DL (14.0-18.0); Immature Granulocytes % 0.9 %; Immature Granulocytes Absolute 0.11 #; Lymphocytes # 1.4 10*3/uL (1.4-4.0); Mean Corpuscular HGB Conc 33.1 GM/DL (32-36); Mean Corpuscular Volume 93.2 FL (87-102); Mean Platelet Volume 10.3 FL (9.6-12.0); Monocytes % 11.7 % (1.7-12.7); Neutrophils % 73.5 % (38.7-73.9); Platelet Count 258 T/CUMM (130-400); Red Blood Count 3.11 MC/CUMM (3.8-5.5); Red Cell Distribution Width 12.5 % (9.3-17.3); White Blood Count 12.5 T/CUMM (4-12)
[2018-08-25 08:51] LABS: Alanine Aminotransferase 16 U/L (16-61); Alkaline Phosphatase 86 U/L (45-117); Aspartate Amino Transferase 18 U/L (0-37); Bilirubin,Total < 0.39 MG/DL (0.2-1.0); Blood Urea Nitrogen 35 MG/DL (7-18); Calcium 7.8 MG/DL (8.5-10.1); Glucose 56 MG/DL (74-106); Osmolality,Calculated 286.3 MOS/KG (273-304); Total Protein 6.2 G/DL (6.4-8.3)
[2018-08-25] MEDS: INSULIN NPH/REGULAR 70/30 100 UNIT/ML SUBCUT SCH ×2 (09:00→20:26)
[2018-08-25] MEDS: METOPROLOL SUCCINATE XL 100 MG TABLET PO SCH (09:22)
[2018-08-25] MEDS: GABAPENTIN 100 MG CAPSULE PO SCH ×3 (09:22→20:33)
[2018-08-25] MEDS: PANTOPRAZOLE 40 MG TABLET PO SCH (09:22)
[2018-08-25] MEDS: ASPIRIN CHEW 81 MG TABLET PO SCH (09:22)
[2018-08-25] MEDS: POTASSIUM CHLORIDE 20 MEQ TABLET PO SCH (09:22)
[2018-08-25] MEDS: SIMVASTATIN 20 MG TABLET PO SCH (09:22)
[2018-08-25] MEDS: MULTIVITAMIN (CENTRUM) TABLET PO SCH (09:22)
[2018-08-25] MEDS: TAMSULOSIN 0.4 MG CAPSULE PO SCH (09:22)
[2018-08-25] MEDS: SODIUM HYPOCHLORITE 0.25% IRRIG 473 ML BOTTLE TOP SCH (10:00)
[2018-08-25] MEDS: CHLORHEXIDINE 4% SOLN 118 ML BOTTLE TOP SCH (10:00)
[2018-08-25] MEDS: LEVOFLOXACIN 500 MG TABLET PO SCH (13:16)
[2018-08-25] MEDS: DOCUSATE/SENNA 50-8.6 MG TABLET PO SCH ×2 (14:46→20:32)
[2018-08-25] MEDS ORDERED: SIMETHICONE CHEW 80 MG TABLET PO PRN (20:01)
[2018-08-25] MEDS: HYDROmorphone 2 MG/1 ML VIAL IV PRN (20:28)
[2018-08-25] MEDS: diphenhydrAMINE CAP 25 MG CAPSULE PO PRN (20:33)
[2018-08-26 05:26] LABS: Basophils % 0.2 % (0.0-0.8); Eosinophils # 0.5 10*3/uL (0.0-0.87); Eosinophils % 3.4 % (0.00-10.9); Hematocrit 26.2 VOL% (42.0-52.0); Hemoglobin 8.7 GM/DL (14.0-18.0); Immature Granulocytes % 0.6 %; Immature Granulocytes Absolute 0.09 #; Lymphocytes # 1.5 10*3/uL (1.4-4.0); Lymphocytes % 10.2 % (21.2-54.2); Mean Corpuscular HGB Conc 33.2 GM/DL (32-36); Mean Corpuscular Volume 95.6 FL (87-102); Monocytes % 8.1 % (1.7-12.7); Neutrophils % 77.5 % (38.7-73.9); Platelet Count 226 T/CUMM (130-400); Red Blood Count 2.74 MC/CUMM (3.8-5.5); Red Cell Distribution Width 12.8 % (9.3-17.3)
[2018-08-26 06:00] LABS: Albumin 1.8 G/DL (3.4-5.0); Bilirubin,Total 0.4 MG/DL (0.2-1.0); Calcium 7.8 MG/DL (8.5-10.1); Osmolality,Calculated 284.8 MOS/KG (273-304); Total Protein 5.9 G/DL (6.4-8.3)
[2018-08-26] MEDS ORDERED: SODIUM CHLORIDE 0.9% 1,000 ML IV SCH (07:30)
[2018-08-26] MEDS: INSULIN REGULAR 100 UNIT/ML SUBCUT SCH ×4 (08:03→21:04)
[2018-08-26] MEDS: INSULIN NPH/REGULAR 70/30 100 UNIT/ML SUBCUT SCH ×2 (08:56→21:04)
[2018-08-26] MEDS ORDERED: ENOXAPARIN 30 MG/0.3 ML SYRINGE SUBCUT SCH (10:00)
[2018-08-26] MEDS: PANTOPRAZOLE 40 MG TABLET PO SCH (10:10)
[2018-08-26] MEDS: MULTIVITAMIN (CENTRUM) TABLET PO SCH (10:10)
[2018-08-26] MEDS: ASPIRIN CHEW 81 MG TABLET PO SCH (10:10)
[2018-08-26] MEDS: POTASSIUM CHLORIDE 20 MEQ TABLET PO SCH (10:11)
[2018-08-26] MEDS: GABAPENTIN 100 MG CAPSULE PO SCH ×3 (10:11→21:05)
[2018-08-26] MEDS: METOPROLOL SUCCINATE XL 100 MG TABLET PO SCH (10:12)
[2018-08-26] MEDS: TAMSULOSIN 0.4 MG CAPSULE PO SCH (10:12)
[2018-08-26] MEDS: SIMVASTATIN 20 MG TABLET PO SCH (10:12)
[2018-08-26] MEDS: DOCUSATE/SENNA 50-8.6 MG TABLET PO SCH ×2 (10:13→21:05)
[2018-08-26] MEDS: SODIUM HYPOCHLORITE 0.25% IRRIG 473 ML BOTTLE TOP SCH (10:13)
[2018-08-26] MEDS: CHLORHEXIDINE 4% SOLN 118 ML BOTTLE TOP SCH (10:15)
[2018-08-26] MEDS: ENOXAPARIN 30 MG/0.3 ML SYRINGE SUBCUT SCH (10:19)
[2018-08-26] MEDS: HYDROmorphone 2 MG/1 ML VIAL IV PRN (15:01)
[2018-08-26 18:22] LABS: Amorphous Crystals,Urine Occasional /HPF (Few); Apearance,Urine Slightly Hazy (Clear); Bacteria,Urine Few /HPF (Few); Bilirubin,Urine Negative (Negative); Blood, Urine Moderate mg/dL (Negative); Glucose,Urine (UA) 50 mg/dL (Negative); Ketones,Urine Negative (Negative); Mucus,Urine Occasional /LPF (Occasional); Nitrite,Urine Negative (Negative); Protein,Urine >=500 MG/DL; RBC,Urine 35 /HPF (0-4); Sperm,Urine Moderate /HPF (Negative); Squamous Epithelial Cell,Urine Occasional /HPF (0-10); Urine Color Yellow (Yellow); Urine Specific Gravity 1.008 (1.001-1.035); Urine Urobilinogen < 2.0 EU/DL (0.2-1.0); WBC,Urine 3 /HPF (0-6)
[2018-08-26] MEDS: TEMAZEPAM 15 MG CAPSULE PO PRN (21:04)
[2018-08-27 05:46] LABS: Basophils % 0.3 % (0.0-0.8); Eosinophils # 0.8 10*3/uL (0.0-0.87); Eosinophils % 8.2 % (0.00-10.9); Hematocrit 26.5 VOL% (42.0-52.0); Hemoglobin 8.5 GM/DL (14.0-18.0); Immature Granulocytes % 0.8 %; Immature Granulocytes Absolute 0.08 #; Lymphocytes # 1.2 10*3/uL (1.4-4.0); Lymphocytes % 12.6 % (21.2-54.2); Mean Corpuscular HGB Conc 32.1 GM/DL (32-36); Mean Corpuscular Volume 95.3 FL (87-102); Mean Platelet Volume 11.4 FL (9.6-12.0); Monocytes % 10.4 % (1.7-12.7); Neutrophils % 67.7 % (38.7-73.9); Platelet Count 212 T/CUMM (130-400); Red Blood Count 2.78 MC/CUMM (3.8-5.5); Red Cell Distribution Width 12.7 % (9.3-17.3); White Blood Count 9.7 T/CUMM (4-12)
[2018-08-27 05:56] LABS: Alanine Aminotransferase 15 U/L (16-61); Albumin 1.9 G/DL (3.4-5.0); Alkaline Phosphatase 90 U/L (45-117); Aspartate Amino Transferase 30 U/L (0-37); Bilirubin,Total < 0.39 MG/DL (0.2-1.0); Blood Urea Nitrogen 47 MG/DL (7-18); Osmolality,Calculated 285.5 MOS/KG (273-304); Total Protein 5.9 G/DL (6.4-8.3)
[2018-08-27 06:00] LABS: Glucose 43 MG/DL (74-106)
[2018-08-27] MEDS: INSULIN REGULAR 100 UNIT/ML SUBCUT SCH ×4 (08:02→22:10)
[2018-08-27] MEDS: INSULIN NPH/REGULAR 70/30 100 UNIT/ML SUBCUT SCH ×2 (08:03→22:09)
[2018-08-27] MEDS: DOCUSATE/SENNA 50-8.6 MG TABLET PO SCH ×2 (08:04→22:09)
[2018-08-27] MEDS: TAMSULOSIN 0.4 MG CAPSULE PO SCH (08:04)
[2018-08-27] MEDS: GABAPENTIN 100 MG CAPSULE PO SCH (08:04)
[2018-08-27] MEDS: SIMVASTATIN 20 MG TABLET PO SCH (08:04)
[2018-08-27] MEDS: ERGOCALCIFEROL 50,000 UNIT CAPSULE PO SCH (08:04)
[2018-08-27] MEDS: MULTIVITAMIN (CENTRUM) TABLET PO SCH (08:04)
[2018-08-27] MEDS: PANTOPRAZOLE 40 MG TABLET PO SCH (08:04)
[2018-08-27] MEDS: METOPROLOL SUCCINATE XL 100 MG TABLET PO SCH (08:04)
[2018-08-27] MEDS: ASPIRIN CHEW 81 MG TABLET PO SCH (08:04)
[2018-08-27] MEDS: POTASSIUM CHLORIDE 20 MEQ TABLET PO SCH (08:05)
[2018-08-27] MEDS: SODIUM HYPOCHLORITE 0.25% IRRIG 473 ML BOTTLE TOP SCH (08:05)
[2018-08-27] MEDS: CHLORHEXIDINE 4% SOLN 118 ML BOTTLE TOP SCH (08:05)
[2018-08-27] MEDS: ENOXAPARIN 30 MG/0.3 ML SYRINGE SUBCUT SCH (11:21)
[2018-08-27] MEDS: GLYCERIN ADULT SUPP RECTAL PRN ×2 (11:21→15:03)
[2018-08-27] MEDS: HYDROmorphone 2 MG/1 ML VIAL IV PRN (14:59)
[2018-08-27 15:44] LABS: Creatinine,Urine Random 83 MG/DL; Total Protein,Urine Random 338 MG/DL; Urea Nitrogen, Urine Random 358 MG/DL
[2018-08-27 20:06] LABS: ABG Base Excess -4.8 MMOL/L (-2.5-2.5); ABG Oxygen Saturation 88.5 % (95-100); ABG PCO2 35.8 MM HG (35-48); ABG PH 7.364 (7.35-7.45); ABG PO2 62.2 MM HG (80-95); ABG TCO2 21.1 MMOL/L (23-27)
[2018-08-27] MEDS ORDERED: ALBUTEROL 2.5 MG/3 ML NEB RESP TX PRN (20:08)
[2018-08-27] MEDS: ACETAMINOPHEN 325 MG TABLET PO PRN (20:35)
[2018-08-27] MEDS ORDERED: GABAPENTIN 300 MG CAPSULE PO SCH (21:00)
[2018-08-27 21:03] LABS: Calcium 8.1 MG/DL (8.5-10.1); Osmolality,Calculated 285.1 MOS/KG (273-304)
[2018-08-27] MEDS ORDERED: CALCIUM GLUCONATE 1,000 MG in SODIUM CHLORIDE 0.9% 100 ML IV ONE (21:11)
[2018-08-27] MEDS ORDERED: SODIUM POLYSTYRENE SULFATE 15 GM/60 ML BOTTLE PO ONE (21:11)
[2018-08-27] MEDS ORDERED: DEXTROSE IV SCH (21:30)
[2018-08-27] MEDS ORDERED: INSULIN REGULAR IV SCH ×2 (21:30→23:00)
[2018-08-27] MEDS ORDERED: SODIUM BICARB IV SCH ×2 (21:30→23:00)
[2018-08-27] MEDS ORDERED: [UNRECOGNIZED DRUG - OTHER] IV SCH (21:30)
[2018-08-27] MEDS: LEVOFLOXACIN INJ 750 MG in PREMIX 1 EACH IV SCH (22:11)
[2018-08-27] MEDS: PIPERACILLIN/TAZOBACTAM 3,375 MG in SODIUM CHLORIDE 0.9% 100 ML IV SCH (22:13)
[2018-08-27] MEDS ORDERED: SODIUM CHLORIDE 0.9% IV SCH (23:00)
[2018-08-27] MEDS ORDERED: DEXTROSE 10% 1,000 ML IV SCH (23:00)
[2018-08-27] MEDS ORDERED: DEXTROSE 10% 250 ML BAG IV PRN (23:17)
[2018-08-27] MEDS ORDERED: DEXTROSE 10% 250 ML IV PRN (23:30)
[2018-08-28] MEDS: PIPERACILLIN/TAZOBACTAM 3,375 MG in SODIUM CHLORIDE 0.9% 100 ML IV SCH ×2 (06:03→18:41)
[2018-08-28] MEDS: ALBUTEROL/IPRATROPIUM 3 ML NEB RESP TX SCH ×4 (06:52→19:10)
[2018-08-28 07:46] LABS: Basophils # 0.1 10*3/uL (0.0-0.2); Basophils % 0.3 % (0.0-0.8); Eosinophils # 0.2 10*3/uL (0.0-0.87); Eosinophils % 1.5 % (0.00-10.9); Hematocrit 23.3 VOL% (42.0-52.0); Hemoglobin 7.4 GM/DL (14.0-18.0); Immature Granulocytes % 0.7 %; Immature Granulocytes Absolute 0.11 #; Lymphocytes # 1.4 10*3/uL (1.4-4.0); Lymphocytes % 9.4 % (21.2-54.2); Mean Corpuscular HGB Conc 31.8 GM/DL (32-36); Mean Corpuscular Volume 96.3 FL (87-102); Mean Platelet Volume 10.4 FL (9.6-12.0); Monocytes % 9.8 % (1.7-12.7); Neutrophils % 78.3 % (38.7-73.9); Platelet Count 223 T/CUMM (130-400); Red Blood Count 2.42 MC/CUMM (3.8-5.5); Red Cell Distribution Width 12.8 % (9.3-17.3); White Blood Count 14.7 T/CUMM (4-12)
[2018-08-28 08:00] LABS: Calcium 7.7 MG/DL (8.5-10.1)
[2018-08-28 08:04] LABS: Band Neutrophils 4 % (0-10); Eosinophils 2 % (0-10); Lymphocytes 13 % (20-55); Segmented Neutrophils 72 % (50-85); Total Cells Counted 100
[2018-08-28 08:05] LABS: Platelet Estimate Adequate
[2018-08-28] MEDS ORDERED: DEXTROSE 50% 25 GM/50 ML VIAL IV ONE (08:11)
[2018-08-28] MEDS ORDERED: INSULIN REGULAR 100 UNIT/ML IV ONE (08:11)
[2018-08-28] MEDS ORDERED: FUROSEMIDE 40 MG/4 ML VIAL IV ONE (08:12)
[2018-08-28] MEDS: INSULIN REGULAR 100 UNIT/ML SUBCUT SCH ×4 (08:17→22:10)
[2018-08-28 08:28] LABS: Alanine Aminotransferase 15 U/L (16-61); Albumin 1.7 G/DL (3.4-5.0); Alkaline Phosphatase 86 U/L (45-117); Aspartate Amino Transferase 24 U/L (0-37); Bilirubin,Total < 0.39 MG/DL (0.2-1.0); Blood Urea Nitrogen 57 MG/DL (7-18); Calcium 7.7 MG/DL (8.5-10.1); Glucose 133 MG/DL (74-106); Osmolality,Calculated 290.8 MOS/KG (273-304); Total Protein 5.7 G/DL (6.4-8.3)
[2018-08-28] MEDS ORDERED: PIPERACILLIN/TAZOBACTAM 2,250 MG in SODIUM CHLORIDE 0.9% 100 ML IV SCH (08:30)
[2018-08-28] MEDS ORDERED: CALCIUM GLUCONATE 1,000 MG in SODIUM CHLORIDE 0.9% 100 ML IV ONE (08:30)
[2018-08-28] MEDS ORDERED: DEXTROSE 10% 250 ML IV ONE (08:30)
[2018-08-28] MEDS: INSULIN NPH/REGULAR 70/30 100 UNIT/ML SUBCUT SCH ×2 (08:42→22:09)
[2018-08-28] MEDS: TAMSULOSIN 0.4 MG CAPSULE PO SCH (08:56)
[2018-08-28] MEDS: ASPIRIN CHEW 81 MG TABLET PO SCH (08:57)
[2018-08-28] MEDS: SIMVASTATIN 20 MG TABLET PO SCH (08:57)
[2018-08-28] MEDS: PANTOPRAZOLE 40 MG TABLET PO SCH (08:57)
[2018-08-28] MEDS: DOCUSATE/SENNA 50-8.6 MG TABLET PO SCH ×2 (08:57→22:09)
[2018-08-28] MEDS: METOPROLOL SUCCINATE XL 100 MG TABLET PO SCH (08:57)
[2018-08-28] MEDS: CHLORHEXIDINE 4% SOLN 118 ML BOTTLE TOP SCH (08:58)
[2018-08-28] MEDS: SODIUM HYPOCHLORITE 0.25% IRRIG 473 ML BOTTLE TOP SCH (08:58)
[2018-08-28] MEDS: ALBUMIN 25% 25 GM in PREMIX 1 EACH IV SCH ×2 (10:02→16:58)
[2018-08-28] MEDS: ENOXAPARIN 30 MG/0.3 ML SYRINGE SUBCUT SCH (10:02)
[2018-08-28] MEDS: SODIUM BICARB INJ 150 MEQ in DEXTROSE 5% 850 ML IV SCH ×2 (10:02→18:07)
[2018-08-28 10:07] LABS: Apearance,Urine CLOUDY (Clear); Bacteria,Urine Few /HPF (Few); Bilirubin,Urine Negative (Negative); Blood, Urine Moderate mg/dL (Negative); Glucose,Urine (UA) 50 mg/dL (Negative); Ketones,Urine Negative (Negative); Mucus,Urine Occasional /LPF (Occasional); Nitrite,Urine Negative (Negative); Protein,Urine >=500 MG/DL; RBC,Urine 11 /HPF (0-4); Squamous Epithelial Cell,Urine Occasional /HPF (0-10); Urine Color Yellow (Yellow); Urine Specific Gravity 1.018 (1.001-1.035); Urine Urobilinogen < 2.0 EU/DL (0.2-1.0); WBC,Urine 26 /HPF (0-6)
[2018-08-28 10:32] LABS: Protein/Creatinine Ratio,Urine 2.8 RATIO
[2018-08-28 15:12] LABS: Alanine Aminotransferase 16 U/L (16-61); Alkaline Phosphatase 83 U/L (45-117); Aspartate Amino Transferase 21 U/L (0-37); Bilirubin,Total < 0.39 MG/DL (0.2-1.0); Blood Urea Nitrogen 58 MG/DL (7-18); Glucose 146 MG/DL (74-106); Osmolality,Calculated 291.8 MOS/KG (273-304); Total Protein 5.9 G/DL (6.4-8.3)
[2018-08-28] MEDS: ACETAMINOPHEN 325 MG TABLET PO PRN (19:34)
[2018-08-29 00:53] LABS: Allen Test Positive; Pt O2 Delivery Device BIPAP
[2018-08-29 00:55] LABS: ABG Base Excess 0.6 MMOL/L (-2.5-2.5); ABG HCO3 24.8 MMOL/L (20-26); ABG Oxygen Saturation 82.3 % (95-100); ABG PH 7.424 (7.35-7.45); ABG PO2 45.9 MM HG (80-95); ABG TCO2 23.4 MMOL/L (23-27)
[2018-08-29] MEDS ORDERED: ETOMIDATE 20 MG/10 ML VIAL IV ONE ×2 (01:08→01:16)
[2018-08-29] MEDS ORDERED: VECURONIUM 10 MG VIAL IV ONE ×2 (01:08→01:17)
[2018-08-29] MEDS ORDERED: PROPOFOL 1,000 MG/100 ML BOTTLE IV ONE (01:09)
[2018-08-29] MEDS: PROPOFOL 1,000 MG/100 ML BOTTLE IV SCH ×6 (01:18→21:33)
[2018-08-29] MEDS: ALBUTEROL/IPRATROPIUM 3 ML NEB RESP TX SCH ×4 (01:54→19:14)
[2018-08-29 02:05] LABS: ABG Base Excess 1.4 MMOL/L (-2.5-2.5); ABG HCO3 24.6 MMOL/L (20-26); ABG Oxygen Saturation 96.8 % (95-100); ABG PCO2 32.7 MM HG (35-48); ABG PH 7.494 (7.35-7.45); ABG PO2 92.6 MM HG (80-95); ABG TCO2 25.6 MMOL/L (23-27); Allen Test Positive; Pt O2 Delivery Device Ventilator
[2018-08-29] MEDS: ALBUMIN 25% 25 GM in PREMIX 1 EACH IV SCH ×3 (02:13→16:02)
[2018-08-29] MEDS: SODIUM BICARB INJ 150 MEQ in DEXTROSE 5% 850 ML IV SCH ×2 (02:27→11:56)
[2018-08-29] MEDS: ACETAMINOPHEN 325 MG/10.15 ML UDCUP PO PRN ×3 (04:38→21:23)
[2018-08-29] MEDS: PIPERACILLIN/TAZOBACTAM 3,375 MG in SODIUM CHLORIDE 0.9% 100 ML IV SCH ×2 (05:35→20:01)
[2018-08-29 07:58] LABS: Basophils % 0.4 % (0.0-0.8); Eosinophils # 0.3 10*3/uL (0.0-0.87); Eosinophils % 2.7 % (0.00-10.9); Hematocrit 18.9 VOL% (42.0-52.0); Immature Granulocytes % 0.8 %; Immature Granulocytes Absolute 0.08 #; Lymphocytes # 1.7 10*3/uL (1.4-4.0); Lymphocytes % 17.5 % (21.2-54.2); Mean Corpuscular HGB Conc 32.8 GM/DL (32-36); Mean Corpuscular Volume 94.5 FL (87-102); Mean Platelet Volume 9.7 FL (9.6-12.0); Neutrophils % 76.6 % (38.7-73.9); Red Cell Distribution Width 12.7 % (9.3-17.3)
[2018-08-29 08:05] LABS: Hemoglobin 6.2 GM/DL (14.0-18.0); Platelet Count 173 T/CUMM (130-400); White Blood Count 9.5 T/CUMM (4-12)
[2018-08-29 08:07] LABS: Calcium 7.6 MG/DL (8.5-10.1); Osmolality,Calculated 299.7 MOS/KG (273-304); Total Protein 5.2 G/DL (6.4-8.3)
[2018-08-29] MEDS ORDERED: SODIUM CHLORIDE 0.9% 1,000 ML IV PRN (08:16)
[2018-08-29] MEDS ORDERED: FUROSEMIDE 100 MG/10 ML VIAL IV PRN (08:19)
[2018-08-29] MEDS: INSULIN NPH/REGULAR 70/30 100 UNIT/ML SUBCUT SCH ×2 (08:41→21:12)
[2018-08-29] MEDS: INSULIN REGULAR 100 UNIT/ML SUBCUT SCH ×4 (08:41→21:12)
[2018-08-29] MEDS: PANTOPRAZOLE 40 MG VIAL IV SCH ×2 (08:42→21:12)
[2018-08-29] MEDS: ASPIRIN CHEW 81 MG TABLET PO SCH (08:54)
[2018-08-29] MEDS: DOCUSATE/SENNA 50-8.6 MG TABLET PO SCH ×2 (08:54→21:13)
[2018-08-29] MEDS: TAMSULOSIN 0.4 MG CAPSULE PO SCH (08:54)
[2018-08-29] MEDS: METOPROLOL SUCCINATE XL 100 MG TABLET PO SCH (09:02)
[2018-08-29] MEDS: SODIUM HYPOCHLORITE 0.25% IRRIG 473 ML BOTTLE TOP SCH (09:02)
[2018-08-29] MEDS: CHLORHEXIDINE 4% SOLN 118 ML BOTTLE TOP SCH (09:02)
[2018-08-29] MEDS: SIMVASTATIN 20 MG TABLET PO SCH (09:03)
[2018-08-29] MEDS ORDERED: SODIUM HYPOCHLORITE 0.25% IRRIG 473 ML BOTTLE TOP PRN (09:05)
[2018-08-29] MEDS ORDERED: CHLORHEXIDINE 4% SOLN 118 ML BOTTLE TOP PRN (09:05)
[2018-08-29] MEDS: ENOXAPARIN 30 MG/0.3 ML SYRINGE SUBCUT SCH (11:56)
[2018-08-29] MEDS: NIFEdipine 10 MG CAPSULE PO SCH (21:12)
[2018-08-29 21:31] LABS: Hematocrit 25.2 VOL% (42.0-52.0)
[2018-08-29 21:35] LABS: Hemoglobin 8.4 GM/DL (14.0-18.0)
[2018-08-30] MEDS: LEVOFLOXACIN INJ 750 MG in PREMIX 1 EACH IV SCH (00:04)
[2018-08-30] MEDS: ALBUTEROL/IPRATROPIUM 3 ML NEB RESP TX SCH ×4 (00:58→19:21)
[2018-08-30] MEDS: HYDROmorphone 2 MG/1 ML VIAL IV PRN (01:23)
[2018-08-30] MEDS: PROPOFOL 1,000 MG/100 ML BOTTLE IV SCH ×6 (01:37→21:39)
[2018-08-30] MEDS: ALBUMIN 25% 25 GM in PREMIX 1 EACH IV SCH ×3 (01:38→18:36)
[2018-08-30 03:19] LABS: ABG Base Excess 7.4 MMOL/L (-2.5-2.5); ABG HCO3 31.2 MMOL/L (20-26); ABG Oxygen Saturation 99.7 % (95-100); ABG PCO2 34.5 MM HG (35-48); ABG PH 7.549 (7.35-7.45); ABG TCO2 27.5 MMOL/L (23-27); Allen Test Positive; Pt O2 Delivery Device Ventilator
[2018-08-30 04:44] LABS: Albumin 2.7 G/DL (3.4-5.0); Bilirubin,Total 2.3 MG/DL (0.2-1.0); Calcium 8.2 MG/DL (8.5-10.1); Osmolality,Calculated 299.3 MOS/KG (273-304)
[2018-08-30 05:26] LABS: Basophils % 0.2 % (0.0-0.8); Eosinophils # 0.2 10*3/uL (0.0-0.87); Eosinophils % 1.3 % (0.00-10.9); Hemoglobin 8.6 GM/DL (14.0-18.0); Immature Granulocytes % 1.2 %; Immature Granulocytes Absolute 0.15 #; Lymphocytes # 0.8 10*3/uL (1.4-4.0); Lymphocytes % 6.2 % (21.2-54.2); Mean Corpuscular HGB Conc 33.1 GM/DL (32-36); Mean Corpuscular Volume 91.5 FL (87-102); Mean Platelet Volume 10.5 FL (9.6-12.0); Monocytes % 9.9 % (1.7-12.7); Neutrophils % 81.2 % (38.7-73.9); Platelet Count 201 T/CUMM (130-400); Red Blood Count 2.84 MC/CUMM (3.8-5.5); Red Cell Distribution Width 12.8 % (9.3-17.3); White Blood Count 12.6 T/CUMM (4-12)
[2018-08-30] MEDS: PIPERACILLIN/TAZOBACTAM 3,375 MG in SODIUM CHLORIDE 0.9% 100 ML IV SCH ×2 (05:45→19:44)
[2018-08-30] MEDS: INSULIN REGULAR 100 UNIT/ML SUBCUT SCH ×3 (07:56→18:37)
[2018-08-30] MEDS: SODIUM BICARB INJ 150 MEQ in DEXTROSE 5% 850 ML IV SCH (08:51)
[2018-08-30] MEDS: DOCUSATE/SENNA 50-8.6 MG TABLET PO SCH ×2 (08:55→21:24)
[2018-08-30] MEDS: SIMVASTATIN 20 MG TABLET PO SCH (08:55)
[2018-08-30] MEDS: ASPIRIN CHEW 81 MG TABLET PO SCH (08:55)
[2018-08-30] MEDS: TAMSULOSIN 0.4 MG CAPSULE PO SCH (08:55)
[2018-08-30] MEDS: NIFEdipine 10 MG CAPSULE PO SCH ×2 (08:55→21:23)
[2018-08-30] MEDS: METOPROLOL TARTRATE 50 MG TABLET PO SCH ×2 (08:56→21:24)
[2018-08-30] MEDS: INSULIN NPH/REGULAR 70/30 100 UNIT/ML SUBCUT SCH ×2 (09:00→21:31)
[2018-08-30] MEDS: PANTOPRAZOLE 40 MG VIAL IV SCH ×2 (09:00→21:24)
[2018-08-30] MEDS: SODIUM CHLORIDE 0.9% 1,000 ML IV SCH (10:47)
[2018-08-30] MEDS: ENOXAPARIN 30 MG/0.3 ML SYRINGE SUBCUT SCH (11:32)
[2018-08-31] MEDS: INSULIN REGULAR 100 UNIT/ML SUBCUT SCH ×4 (00:22→18:06)
[2018-08-31] MEDS: ALBUMIN 25% 25 GM in PREMIX 1 EACH IV SCH (00:22)
[2018-08-31] MEDS: ALBUTEROL/IPRATROPIUM 3 ML NEB RESP TX SCH ×4 (01:51→20:49)
[2018-08-31] MEDS: PROPOFOL 1,000 MG/100 ML BOTTLE IV SCH ×5 (02:00→20:19)
[2018-08-31 03:45] LABS: ABG Base Excess 6.7 MMOL/L (-2.5-2.5); ABG HCO3 30.6 MMOL/L (20-26); ABG Oxygen Saturation 98.8 % (95-100); ABG PCO2 42.5 MM HG (35-48); ABG PH 7.471 (7.35-7.45); ABG TCO2 28.7 MMOL/L (23-27); Allen Test Positive; Pt O2 Delivery Device Ventilator
[2018-08-31] MEDS: ACETAMINOPHEN 325 MG/10.15 ML UDCUP PO PRN (04:34)
[2018-08-31 05:51] LABS: Basophils % 0.2 % (0.0-0.8); Eosinophils # 0.3 10*3/uL (0.0-0.87); Eosinophils % 2.4 % (0.00-10.9); Hematocrit 25.1 VOL% (42.0-52.0); Immature Granulocytes % 1.3 %; Immature Granulocytes Absolute 0.16 #; Lymphocytes # 0.6 10*3/uL (1.4-4.0); Lymphocytes % 5.1 % (21.2-54.2); Mean Corpuscular HGB Conc 31.9 GM/DL (32-36); Mean Corpuscular Volume 95.4 FL (87-102); Mean Platelet Volume 9.8 FL (9.6-12.0); Monocytes % 9.4 % (1.7-12.7); Neutrophils % 81.6 % (38.7-73.9); Platelet Count 204 T/CUMM (130-400); Red Blood Count 2.63 MC/CUMM (3.8-5.5); Red Cell Distribution Width 13.2 % (9.3-17.3); White Blood Count 12.1 T/CUMM (4-12)
[2018-08-31] MEDS: PIPERACILLIN/TAZOBACTAM 3,375 MG in SODIUM CHLORIDE 0.9% 100 ML IV SCH ×2 (05:53→18:17)
[2018-08-31] MEDS: SODIUM CHLORIDE 0.9% 1,000 ML IV SCH (05:54)
[2018-08-31 06:27] LABS: Prealbumin 9.3 MG/DL (20-40)
[2018-08-31 06:28] LABS: Albumin 2.8 G/DL (3.4-5.0); Bilirubin,Total 2.9 MG/DL (0.2-1.0); Calcium 8.1 MG/DL (8.5-10.1); Osmolality,Calculated 303.7 MOS/KG (273-304)
[2018-08-31] MEDS: NIFEdipine 10 MG CAPSULE PO SCH ×2 (09:45→20:26)
[2018-08-31] MEDS: INSULIN NPH/REGULAR 70/30 100 UNIT/ML SUBCUT SCH ×2 (09:45→20:20)
[2018-08-31] MEDS: TAMSULOSIN 0.4 MG CAPSULE PO SCH (09:45)
[2018-08-31] MEDS: METOPROLOL TARTRATE 50 MG TABLET PO SCH ×2 (09:45→20:26)
[2018-08-31] MEDS: PANTOPRAZOLE 40 MG VIAL IV SCH ×2 (09:45→20:26)
[2018-08-31] MEDS: ASPIRIN CHEW 81 MG TABLET PO SCH (09:45)
[2018-08-31] MEDS: DOCUSATE/SENNA 50-8.6 MG TABLET PO SCH ×2 (09:46→20:26)
[2018-08-31] MEDS: SIMVASTATIN 20 MG TABLET PO SCH (09:46)
[2018-08-31] MEDS: ENOXAPARIN 30 MG/0.3 ML SYRINGE SUBCUT SCH (11:11)
[2018-08-31] MEDS: LEVOFLOXACIN INJ 500 MG in PREMIX 1 EACH IV SCH (20:21)
[2018-09-01] MEDS: PROPOFOL 1,000 MG/100 ML BOTTLE IV SCH ×6 (00:30→22:32)
[2018-09-01] MEDS: ALBUTEROL/IPRATROPIUM 3 ML NEB RESP TX SCH ×4 (00:38→19:18)
[2018-09-01] MEDS: INSULIN REGULAR 100 UNIT/ML SUBCUT SCH ×4 (01:36→17:51)
[2018-09-01 03:47] LABS: ABG Base Excess 6.1 MMOL/L (-2.5-2.5); ABG Oxygen Saturation 96.7 % (95-100); ABG PCO2 43.6 MM HG (35-48); ABG PH 7.455 (7.35-7.45); ABG PO2 83.8 MM HG (80-95); ABG TCO2 28.1 MMOL/L (23-27); Pt O2 Delivery Device Ventilator
[2018-09-01] MEDS: PIPERACILLIN/TAZOBACTAM 3,375 MG in SODIUM CHLORIDE 0.9% 100 ML IV SCH ×2 (05:15→18:01)
[2018-09-01 05:52] LABS: Osmolality,Calculated 308.3 MOS/KG (273-304)
[2018-09-01] MEDS: DEXTROSE 5% NACL 0.22% 1,000 ML IV SCH ×2 (08:09→18:05)
[2018-09-01] MEDS: INSULIN NPH/REGULAR 70/30 100 UNIT/ML SUBCUT SCH ×2 (12:02→21:08)
[2018-09-01] MEDS: ASPIRIN CHEW 81 MG TABLET PO SCH (12:02)
[2018-09-01] MEDS: NIFEdipine 10 MG CAPSULE PO SCH ×2 (12:02→21:07)
[2018-09-01] MEDS: METOPROLOL TARTRATE 50 MG TABLET PO SCH ×2 (12:02→21:08)
[2018-09-01] MEDS: TAMSULOSIN 0.4 MG CAPSULE PO SCH (12:02)
[2018-09-01] MEDS: DOCUSATE/SENNA 50-8.6 MG TABLET PO SCH ×2 (12:03→21:08)
[2018-09-01] MEDS: PANTOPRAZOLE 40 MG VIAL IV SCH ×2 (12:03→21:08)
[2018-09-01] MEDS: SIMVASTATIN 20 MG TABLET PO SCH (12:03)
[2018-09-01] MEDS: POTASSIUM CHLORIDE RIDER 10 MEQ in PREMIX 1 EACH IV SCH ×4 (12:04→16:08)
[2018-09-01] MEDS: ENOXAPARIN 30 MG/0.3 ML SYRINGE SUBCUT SCH (12:51)
[2018-09-01] MEDS: ACETAMINOPHEN 325 MG/10.15 ML UDCUP PO PRN (14:34)
[2018-09-01] MEDS ORDERED: POTASSIUM CHLORIDE RIDER 100 ML IV ONE (16:02)
[2018-09-02] MEDS: ALBUTEROL/IPRATROPIUM 3 ML NEB RESP TX SCH ×4 (00:08→19:26)
[2018-09-02] MEDS: DEXTROSE 5% NACL 0.22% 1,000 ML IV SCH ×3 (00:10→14:29)
[2018-09-02] MEDS: INSULIN REGULAR 100 UNIT/ML SUBCUT SCH ×4 (00:25→19:36)
[2018-09-02] MEDS: PROPOFOL 1,000 MG/100 ML BOTTLE IV SCH ×5 (03:01→18:57)
[2018-09-02 04:25] LABS: ABG Base Excess 3.7 MMOL/L (-2.5-2.5); ABG HCO3 27.7 MMOL/L (20-26); ABG Oxygen Saturation 95.1 % (95-100); ABG PCO2 41.5 MM HG (35-48); ABG PO2 73.7 MM HG (80-95); ABG TCO2 25.6 MMOL/L (23-27); Allen Test Positive; Pt O2 Delivery Device Ventilator
[2018-09-02 05:17] LABS: Basophils % 0.3 % (0.0-0.8); Eosinophils # 0.4 10*3/uL (0.0-0.87); Eosinophils % 3.6 % (0.00-10.9); Hematocrit 26.8 VOL% (42.0-52.0); Hemoglobin 8.6 GM/DL (14.0-18.0); Immature Granulocytes % 4.3 %; Immature Granulocytes Absolute 0.48 #; Lymphocytes # 0.6 10*3/uL (1.4-4.0); Lymphocytes % 5.7 % (21.2-54.2); Mean Corpuscular HGB Conc 32.1 GM/DL (32-36); Mean Corpuscular Volume 94.4 FL (87-102); Mean Platelet Volume 9.8 FL (9.6-12.0); Neutrophils % 79.1 % (38.7-73.9); Platelet Count 234 T/CUMM (130-400); Red Blood Count 2.84 MC/CUMM (3.8-5.5); Red Cell Distribution Width 13.2 % (9.3-17.3); White Blood Count 11.1 T/CUMM (4-12)
[2018-09-02 05:44] LABS: Calcium 7.8 MG/DL (8.5-10.1); Osmolality,Calculated 309.8 MOS/KG (273-304)
[2018-09-02] MEDS: PIPERACILLIN/TAZOBACTAM 3,375 MG in SODIUM CHLORIDE 0.9% 100 ML IV SCH ×2 (05:58→17:29)
[2018-09-02] MEDS: INSULIN NPH/REGULAR 70/30 100 UNIT/ML SUBCUT SCH ×2 (09:54→20:55)
[2018-09-02] MEDS: PANTOPRAZOLE 40 MG VIAL IV SCH ×2 (09:54→20:55)
[2018-09-02] MEDS: TAMSULOSIN 0.4 MG CAPSULE PO SCH (09:54)
[2018-09-02] MEDS: NIFEdipine 10 MG CAPSULE PO SCH ×2 (09:54→20:54)
[2018-09-02] MEDS: ASPIRIN CHEW 81 MG TABLET PO SCH (09:54)
[2018-09-02] MEDS: METOPROLOL TARTRATE 50 MG TABLET PO SCH ×2 (09:54→20:54)
[2018-09-02] MEDS: SIMVASTATIN 20 MG TABLET PO SCH (09:55)
[2018-09-02] MEDS: DOCUSATE/SENNA 50-8.6 MG TABLET PO SCH ×2 (09:55→20:54)
[2018-09-02] MEDS: ENOXAPARIN 30 MG/0.3 ML SYRINGE SUBCUT SCH (12:26)
[2018-09-02] MEDS: HYDROmorphone 2 MG/1 ML VIAL IV PRN (14:35)
[2018-09-02] MEDS: LEVOFLOXACIN INJ 500 MG in PREMIX 1 EACH IV SCH (20:56)
[2018-09-03] MEDS: PROPOFOL 1,000 MG/100 ML BOTTLE IV SCH ×8 (00:13→21:24)
[2018-09-03] MEDS: INSULIN REGULAR 100 UNIT/ML SUBCUT SCH ×4 (00:14→18:18)
[2018-09-03] MEDS: ALBUTEROL/IPRATROPIUM 3 ML NEB RESP TX SCH ×4 (00:57→19:10)
[2018-09-03 04:11] LABS: ABG Base Excess 3.4 MMOL/L (-2.5-2.5); ABG HCO3 27.4 MMOL/L (20-26); ABG Oxygen Saturation 97.7 % (95-100); ABG PCO2 43.5 MM HG (35-48); ABG PH 7.421 (7.35-7.45); ABG TCO2 24.9 MMOL/L (23-27); Allen Test Positive; Pt O2 Delivery Device Ventilator
[2018-09-03 05:08] LABS: Basophils # 0.1 10*3/uL (0.0-0.2); Basophils % 0.5 % (0.0-0.8); Eosinophils # 0.7 10*3/uL (0.0-0.87); Eosinophils % 7.4 % (0.00-10.9); Hematocrit 26.5 VOL% (42.0-52.0); Hemoglobin 8.3 GM/DL (14.0-18.0); Immature Granulocytes % 6.4 %; Immature Granulocytes Absolute 0.63 #; Lymphocytes # 0.7 10*3/uL (1.4-4.0); Lymphocytes % 7.3 % (21.2-54.2); Mean Corpuscular HGB Conc 31.3 GM/DL (32-36); Mean Corpuscular Volume 95.7 FL (87-102); Mean Platelet Volume 9.9 FL (9.6-12.0); Monocytes % 5.9 % (1.7-12.7); Neutrophils % 72.5 % (38.7-73.9); Platelet Count 261 T/CUMM (130-400); Red Blood Count 2.77 MC/CUMM (3.8-5.5); Red Cell Distribution Width 13.3 % (9.3-17.3); White Blood Count 9.8 T/CUMM (4-12)
[2018-09-03] MEDS: hydrALAZINE 20 MG/1 ML VIAL IV PRN ×2 (05:08→13:26)
[2018-09-03 05:27] LABS: Osmolality,Calculated 313.4 MOS/KG (273-304)
[2018-09-03 05:33] LABS: Prealbumin 9.8 MG/DL (20-40)
[2018-09-03 05:35] LABS: Band Neutrophils 1 % (0-10); Eosinophils 11 % (0-10); Hypochromasia 1+; Lymphocytes 11 % (20-55); Platelet Estimate Adequate; Segmented Neutrophils 75 % (50-85); Total Cells Counted 100
[2018-09-03] MEDS: PIPERACILLIN/TAZOBACTAM 3,375 MG in SODIUM CHLORIDE 0.9% 100 ML IV SCH ×2 (05:53→18:18)
[2018-09-03] MEDS: HYDROmorphone 2 MG/1 ML VIAL IV PRN ×2 (06:11→15:37)
[2018-09-03] MEDS ORDERED: INSULIN NPH/REGULAR 70/30 100 UNIT/ML SUBCUT SCH (08:04)
[2018-09-03] MEDS: INSULIN NPH/REGULAR 70/30 100 UNIT/ML SUBCUT SCH (09:09)
[2018-09-03] MEDS: ASPIRIN CHEW 81 MG TABLET PO SCH (09:10)
[2018-09-03] MEDS: METOPROLOL TARTRATE 50 MG TABLET PO SCH ×2 (09:10→21:51)
[2018-09-03] MEDS: DOCUSATE/SENNA 50-8.6 MG TABLET PO SCH ×2 (09:10→21:51)
[2018-09-03] MEDS: TAMSULOSIN 0.4 MG CAPSULE PO SCH (09:10)
[2018-09-03] MEDS: SIMVASTATIN 20 MG TABLET PO SCH (09:11)
[2018-09-03] MEDS: PANTOPRAZOLE 40 MG VIAL IV SCH ×2 (09:11→21:52)
[2018-09-03] MEDS: NIFEdipine 10 MG CAPSULE PO SCH (09:48)
[2018-09-03] MEDS: ENOXAPARIN 30 MG/0.3 ML SYRINGE SUBCUT SCH (11:58)
[2018-09-03] MEDS ORDERED: cloNIDine 0.3 MG/24 HR PATCH TRANSDERM SCH (12:30)
[2018-09-03] MEDS: amLODIPine 10 MG TABLET PER TUBE SCH (13:26)
[2018-09-03] MEDS: DEXTROSE 5% NACL 0.22% 1,000 ML IV SCH ×2 (15:04→21:25)
[2018-09-04] MEDS: ALBUTEROL/IPRATROPIUM 3 ML NEB RESP TX SCH ×3 (00:38→13:35)
[2018-09-04] MEDS: PROPOFOL 1,000 MG/100 ML BOTTLE IV SCH ×6 (00:39→12:38)
[2018-09-04] MEDS: INSULIN REGULAR 100 UNIT/ML SUBCUT SCH ×3 (00:40→12:35)
[2018-09-04] MEDS: hydrALAZINE 20 MG/1 ML VIAL IV PRN (00:40)
[2018-09-04 03:34] LABS: ABG Base Excess 3.1 MMOL/L (-2.5-2.5); ABG HCO3 27.2 MMOL/L (20-26); ABG Oxygen Saturation 97.8 % (95-100); ABG PCO2 42.9 MM HG (35-48); ABG PH 7.422 (7.35-7.45); ABG PO2 98.9 MM HG (80-95); ABG TCO2 25.1 MMOL/L (23-27); Allen Test Positive; Pt O2 Delivery Device Ventilator
[2018-09-04 06:05] VITALS: BP 180/83
[2018-09-04 06:13] LABS: Basophils # 0.1 10*3/uL (0.0-0.2); Basophils % 0.5 % (0.0-0.8); Eosinophils # 0.8 10*3/uL (0.0-0.87); Eosinophils % 7.3 % (0.00-10.9); Hematocrit 34.1 VOL% (42.0-52.0); Hemoglobin 10.9 GM/DL (14.0-18.0); Immature Granulocytes % 6.9 %; Immature Granulocytes Absolute 0.75 #; Lymphocytes # 0.7 10*3/uL (1.4-4.0); Lymphocytes % 6.4 % (21.2-54.2); Mean Corpuscular Volume 94.5 FL (87-102); Mean Platelet Volume 10.8 FL (9.6-12.0); Monocytes % 7.6 % (1.7-12.7); Neutrophils % 71.3 % (38.7-73.9); Platelet Count 186 T/CUMM (130-400); Red Blood Count 3.61 MC/CUMM (3.8-5.5); Red Cell Distribution Width 13.6 % (9.3-17.3); White Blood Count 10.9 T/CUMM (4-12)
[2018-09-04 06:25] LABS: Band Neutrophils 3 % (0-10); Eosinophils 9 % (0-10); Hypochromasia 1+; Lymphocytes 9 % (20-55); Platelet Estimate Adequate; Segmented Neutrophils 70 % (50-85); Total Cells Counted 100
[2018-09-04] MEDS: PIPERACILLIN/TAZOBACTAM 3,375 MG in SODIUM CHLORIDE 0.9% 100 ML IV SCH (06:28)
[2018-09-04] MEDS ORDERED: METOPROLOL TARTRATE 100 MG TABLET PER TUBE SCH (08:15)
[2018-09-04] MEDS ORDERED: amLODIPine 10 MG TABLET PER TUBE SCH (09:00)
[2018-09-04] MEDS ORDERED: FUROSEMIDE 80 MG TABLET PER TUBE SCH (09:00)
[2018-09-04] MEDS: DOCUSATE/SENNA 50-8.6 MG TABLET PO SCH (09:38)
[2018-09-04] MEDS: TAMSULOSIN 0.4 MG CAPSULE PO SCH (09:38)
[2018-09-04] MEDS: ASPIRIN CHEW 81 MG TABLET PO SCH (09:39)
[2018-09-04] MEDS: amLODIPine 10 MG TABLET PER TUBE SCH (09:39)
[2018-09-04] MEDS: SIMVASTATIN 20 MG TABLET PO SCH (09:40)
[2018-09-04] MEDS: PANTOPRAZOLE 40 MG VIAL IV SCH (09:40)
[2018-09-04] MEDS: INSULIN NPH/REGULAR 70/30 100 UNIT/ML SUBCUT SCH (09:44)
[2018-09-04 10:00] LABS: Osmolality,Calculated 307.8 MOS/KG (273-304)
[2018-09-04] MEDS: ENOXAPARIN 30 MG/0.3 ML SYRINGE SUBCUT SCH (12:36)
[2018-09-04] MEDS: DEXTROSE 5% NACL 0.22% 1,000 ML IV SCH (15:14)
== END 2018-09-04 15:05 | DRG 305 ==
LOC: N.3E → OBSVTOIN 15:21 → SUATTDRO 15:51 → N.ICU 08-27 20:11
PROVIDERS: ADMIT Surgery; ATTEND Internal Medicine